=== PATIENT | female | born 1960 | race Caucasian/White ===

== ENCOUNTER → 2024-01-25 07:19 | Outpatient (REF) | payer OTHER, SELFPAY ==
[2024-01-25 08:53] LABS: % Basophils 0.7 % (0-2); % Eosinophils 3.2 % (0-6); % Immature Granulocytes 0.4 % (0-0.5); % Lymphocytes 34.2 % (20.5-51.1); % Monocytes 7.6 % (1.7-9.3); % Neutrophils 53.9 % (42.2-75.2); Absolute Eosinophils 0.2 10^3/uL (0-0.7); Absolute Lymphocytes 1.9 10^3/uL (1.2-3.4); Absolute Monocytes 0.4 10^3/uL (0.1-0.6); Absolute Neutrophils 3.1 10^3/uL (1.4-6.5); Hematocrit 41.8 % (37.0-47.0); Hemoglobin 14.3 g/dL (12.0-16.0); Mean Corp Hgb Conc. 34.2 g/dL (33.0-37.0); Mean Corpuscular Hgb 32.8 pg (27.0-31.0); Mean Corpuscular Volume 95.9 fL (81.0-99.0); Mean Platelet Volume 10.5 fL (7.4-10.4); Nucleated Red Blood Cells % 0 %; Platelet Count 226 10^3/uL (130-400); Red Blood Cell Count 4.36 10^6/uL (4.20-5.40); Red Cell Dist. Width 12.7 % (11.5-14.5); White Blood Cell Count 5.7 10^3/uL (4.8-10.8)
[2024-01-25 09:11] LABS: ALT (SGPT) 36 U/L (0-35); AST (SGOT) 31 U/L (14-36); Albumin 4.6 g/dl (3.5-5.0); Alkaline Phosphatase 109 U/L (38-126); Blood Urea Nitrogen 19 mg/dl (7-17); Calcium 9.7 mg/dl (8.4-10.2); Carbon Dioxide 19 mmol/L (22-30); Chloride 107 mmol/L (98-107); Glucose 88 mg/dl (70-99); HDL Cholesterol 50 mg/dl; LDL Cholesterol, Calculated 186 mg/dl; Potassium 4.3 mmol/L (3.5-5.1); Sodium 138 mmol/L (135-145); Total Bilirubin 0.9 mg/dl (0.2-1.3); Total Cholesterol 268 mg/dl (50-199); Total Protein 7.1 g/dl (6.3-8.2); Triglyceride 161 mg/dl (10-149); Very Low Density Lipoprotein 32 mg/dl (0-30); eGFR 42.01
[2024-01-25 09:36] LABS: D-Dimer 7.63 ug/mlFEU (0.00-0.50)
[2024-01-25 09:38] LABS: TSH 2.11 uIU/ml (0.47-4.68)
== END ==
LOC: REG 07:19
PROVIDERS: ATTENDING PHYSICIAN Internal Medicine Cardiovascular Disease
DX: R06.02 Shortness of breath (principal)
CPT/HCPCS: 36415; 80053; 80061; 84443; 85025; 85379

== ENCOUNTER → 2024-02-04 07:39 | Outpatient (REF) | payer OTHER, SELFPAY | LOC: RAD 07:39 | PROVIDERS: ATTENDING PHYSICIAN Internal Medicine Cardiovascular Disease | DX: R79.89 Other specified abnormal findings of blood chemistry (principal); R06.02 Shortness of breath | CPT/HCPCS: 71275; Q9967 ==

== ENCOUNTER 2024-02-04 12:50 | Inpatient (IN) | payer OTHER, SELFPAY ==
[2024-02-04] VITALS (15 sets, daily range): BP systolic 144–180; BP diastolic 88–124; BMI 29.2
--- NOTE | 2024-02-04 09:10 | EDRN ---
the pt was brought to ED Bed #3 from waiting room, Dr. Tiwari came immediately to the bedside, pt placed on monitor, pt has previously placed RAC #20 PIV that was placed in outpatient CT scan, labs drawn and sent, EKG being performed
--- NOTE | 2024-02-04 09:13 | ED.GENMED ---
History of Present Illness
<Karine Shepard MD, Resident - Last Filed: 02/04/24 15:54>
General
Chief Complaint: Breathing Problem
Source: patient
Time Seen by Provider: 02/04/24 08:53
History of Present Illness
History of Present Illness:
63, yo female, Ms. Paloma Hunter, with no significant past medical history presented to the ER after her outpatient chest CT showed pulmonary embolism. Patient reports having SOB and dry cough since December, was seen at urgent care, finished a course of
antibiotics, but her dyspnea has never resolved. So she consulted Dr. Santamaria, who ordered outpatient blood work, CT chest. Patient went for a 7-hour long car drive 6 days ago. Patient also reports few episodes of lightheadedness in the past
couple of weeks. She denies chest pain, palpitations, calf pain, recent surgeries, trauma, previous history of blood clots/clotting disorders.
Phy Exam
<Karine Shepard MD, Resident - Last Filed: 02/04/24 15:54>
Physical Exam
Physical Exam:
GEN: Patient appears anxious
Eyes: PERRLA, EOMs intact, no scleral icterus
HENT: NCAT, oral mucosa moist, no JVD, no cervical adenopathy.
Lungs: CTAB, no wheezes, rales, rhonchi, normal chest wall excursion
Cardiac: RRR, S1-S2+, no peripheral edema. Radial pulses 2+ bilat
Abdomen: S, NT, ND, NABS, no masses or hepatosplenomegaly
Neuro: AO x 3, no focal deficits to BUE/BLE, normal sensation throughout
Skin: No rashes, petechiae. Normal color, no pallor or jaundice.
Psych: Calm, cooperative, proper hygiene
Scores
<Karine Shepard MD, Resident - Last Filed: 02/04/24 15:54>
Heart Failure Risk
Heart Failure Risk Score: Not Applicable
Course
<Karine Shepard MD, Resident - Last Filed: 02/04/24 15:54>
Orders/Labs/Results
Orders:
Orders
02/04/24 09:09
Electrocardiogram (*1) Urgent
Reason for Study: Shortness of Breath
EKG- Treatment ONCE
02/04/24 09:11
Complete Blood Count/With Diff Urgent
Comprehensive Metabolic Panel Urgent
PT/INR [Prothrombin Time] Urgent
PTT Urgent
Troponin I Urgent
02/04/24 09:[address] Non Medication Order As Directed
Physician Order: PTT 6 hours after initial start of Heparin infusion
Above order entered?: Yes
02/04/24 09:27
Heparin 6,400 units IV PRN PRN
02/04/24 09:28
Heparin 3,200 units IV PRN PRN
02/04/24 09:29
Heparin 6,400 units IV NOW STA
Nursing to Place Non Medication Order As Directed
Physician Order: PTT 6 hours after initial start of Heparin infusion
Above order entered?: Yes
02/04/24 09:30
Heparin 56942 Units/250 ml 25,000 units in 250 ml IV PER PROTOCOL
Weight to be used for heparin protocol in kilograms (kg):: 79.6
Protocol:: DVT/PE
PTT Goal Range to be used:: PTT 73 to 111 seconds
Order type:: Initial
INITIAL Infusion Dose (UNITS/KG/hr) & then follow protocol:: 18 units/kg/hr
Infusion Dose in UNITS/hr & then follow protocol (UNITS/hr):: 1,400
INFUSION RATE in mL/hr & then follow protocol (mL/hr):: 14
For DVT/PE algorithm, re-bolus for low PTT?: Yes
PTT less than or equal to 64 seconds:: Re-bolus 80 units/kg (max 10,000units). Increase by 300 units/hr
(+ 3mL/hr)
PTT 64.1 to 72.9 seconds:: Re-bolus 40 units/kg (max 5,000 units). Increase by 200 units/hr
(+ 2mL/hr)
PTT 73 to 111 seconds:: Target Range. No change in rate.
PTT 111.1 to 130.9 seconds:: Decrease rate by 200 units/hr (- 2 mL/hr)
PTT 131 to 199.9 seconds:: HOLD for 1 hr. Then decrease by 200 units/hr (- 2mL/hr)
PTT greater than or equal to 200 seconds:: HOLD for 2 hrs & Notify Provider. Then decrease by 300 units/hr
(- 3mL/hr)
Lab follow-up:: Each change, PTT q6h until 2 consecutive are therapeutic. Then
PTT daily.
02/04/24 Lunch
Regular
At Your Request: Full Participation
Does patient need a safe tray?: No
Reason for opting out of Deployment Technician order writing: Provider Decision
02/04/24 12:19
Admit/Transfer Patient As Directed
Co-Sign Provider:
Level of Care: Inpatient admission
Assign to:: Telemetry
Physician / Group: Pranav
Diagnosis: Acute BL PE
Reason for Telemetry: Other
Other Reason for Telemetry: PE
Date to Stop Telemetry: 02/06/24
Time to Stop Telemetry: 11:00
Reason for Hospitalization: see progress note
Expected length of stay greater than two midnights?: Yes
ELOS- Estimated Length of Stay in days: 3
I certify the patient meets the requirements for IP care: Yes
PRN Pain Medication Management As Directed
May give lesser potent ordered pain med per pt: Yes
preference::
Protocol:: Medication orders for pain may be administered in a
manner that supports deferring to patient preference
when the pt is:
- Requesting an ordered lesser potent pain medication.
Least to most potent pain medications are defined
as: acetaminophen < NSAID < tramadol < opioids
(morphine, oxycodone, hydromorphone).
- Requesting a lesser dose of the same medication IF
ORDERED.
- Requesting a less intrusive route of administration
if both routes are prescribed by the provider (PO <
IV).
02/04/24 12:20
Code Status As Directed
Resuscitation Status: Full Code
02/04/24 12:57
Diphenhydramine [Benadryl] 25 mg PO DAILYPRN PRN
HydrALAZINE [Apresoline] 5 mg IV Q6HPRN PRN
02/04/24 12:57
Echo 2D MMode Color/Doppler Urgent
Reason for Study: PE with RH strain
CT Abd/pel Without Iv Or Oral Routine
Comment: hx of kidney stones
Reason For Exam: left atrophic kidney with calcyeal dilatation
Heparin Protocol- PTT Orders As Directed
PTT per Heparin protocol: -Obtain CBC and baseline PTT - if not already collected.
-Obtain PTT 6 hours from start of infusion. Then, every 6 hours until 2 consecutive
PTT's are therapeutic. Then, PTT Daily.
-With each rate change, obtain PTT every 6 hours until 2 consecutive PTT's are
therapeutic. Then, PTT Daily.
Activity As Directed
Activity Level: Bathroom Privileges
Hemetest Stools As Directed
I&O [Intake/ Output] As Directed
Frequency: q12h
Notify MD As Directed
Notify physician if: PTT is greater than or equal to 200.
US Periph Venous LOWER Ext Dax Routine
Comment:
Reason For Exam: Acute PE
02/04/24 15:35
PTT Urgent
02/05/24 06:00
EKG [Electrocardiogram (*1)] IN AM
Reason for Study: Abnormal EKG
BMP [Basic Metabolic Panel] IN AM
CBC/No Diff [Complete Blood Count/No Diff] IN AM
CMP [Comprehensive Metabolic Panel] IN AM
02/06/24 06:00
Complete Blood Count/No Diff Q2D
Comment: notify provider: Platelet count < 130,000 or decrease by 50% from baseline
02/06/24 11:00
DC Protocol for Telemetry ONCE
02/08/24 06:00
Complete Blood Count/No Diff Q2D
Comment: notify provider: Platelet count < 130,000 or decrease by 50% from baseline
02/10/24 06:00
Complete Blood Count/No Diff Q2D
Comment: notify provider: Platelet count < 130,000 or decrease by 50% from baseline
02/12/24 06:00
Complete Blood Count/No Diff Q2D
Comment: notify provider: Platelet count < 130,000 or decrease by 50% from baseline
02/14/24 06:00
Complete Blood Count/No Diff Q2D
Comment: notify provider: Platelet count < 130,000 or decrease by 50% from baseline
02/16/24 06:00
Complete Blood Count/No Diff Q2D
Comment: notify provider: Platelet count < 130,000 or decrease by 50% from baseline
02/18/24 06:00
Complete Blood Count/No Diff Q2D
Comment: notify provider: Platelet count < 130,000 or decrease by 50% from baseline
02/20/24 06:00
Complete Blood Count/No Diff Q2D
Comment: notify provider: Platelet count < 130,000 or decrease by 50% from baseline
Abnormal Lab Results
02/04/24
09:11
MCH 32.6 H pg
(27.0-31.0)
Absolute Neuts (auto) 7.0 H 10^3/uL
(1.4-6.5)
Absolute Lymphs (auto) 0.5 L 10^3/uL
(1.2-3.4)
Neutrophils % 91.8 H %
(42.2-75.2)
Lymphocytes % 6.8 L %
(20.5-51.1)
Monocytes % 1.0 L %
(1.7-9.3)
APTT 23.0 L Sec
(23.4-35.0)
Carbon Dioxide 18 L mmol/L
(22-30)
BUN 18 H mg/dl
(7-17)
Creatinine 1.2 H mg/dL
(0.6-1.0)
Glucose 153 H mg/dl
(70-99)
ALT 41 H U/L
(0-35)
02/04/24 09:11
02/04/24 09:11
Vital Signs
Initial and Last Documented VS:
Initial Vital Signs
Temp Pulse Resp BP Pulse Ox
97.9 F 84 20 180/124 94
02/04/24 08:46 02/04/24 08:46 02/04/24 08:46 02/04/24 08:46 02/04/24 08:46
Last Documented Vital Signs
Temp Pulse Resp BP Pulse Ox
97.9 F 81 18 152/94 96
02/04/24 08:46 02/04/24 15:00 02/04/24 15:00 02/04/24 15:00 02/04/24 14:54
<Abhinav Tiwari MD - Last Filed: 02/04/24 09:57>
Orders/Labs/Results
Orders:
Orders
02/04/24 09:09
Electrocardiogram (*1) Urgent
Reason for Study: Shortness of Breath
EKG- Treatment ONCE
02/04/24 09:11
Complete Blood Count/With Diff Urgent
Comprehensive Metabolic Panel Urgent
PT/INR [Prothrombin Time] Urgent
PTT Urgent
Troponin I Urgent
02/04/24 09:[address] Non Medication Order As Directed
Physician Order: PTT 6 hours after initial start of Heparin infusion
Above order entered?: Yes
02/04/24 09:27
Heparin 6,400 units IV PRN PRN
02/04/24 09:28
Heparin 3,200 units IV PRN PRN
02/04/24 09:29
Heparin 6,400 units IV NOW STA
Nursing to Place Non Medication Order As Directed
Physician Order: PTT 6 hours after initial start of Heparin infusion
Above order entered?: Yes
02/04/24 09:30
Heparin 50823 Units/250 ml 25,000 units in 250 ml IV PER PROTOCOL
Weight to be used for heparin protocol in kilograms (kg):: 79.6
Protocol:: DVT/PE
PTT Goal Range to be used:: PTT 73 to 111 seconds
Order type:: Initial
INITIAL Infusion Dose (UNITS/KG/hr) & then follow protocol:: 18 units/kg/hr
Infusion Dose in UNITS/hr & then follow protocol (UNITS/hr):: 1,400
INFUSION RATE in mL/hr & then follow protocol (mL/hr):: 14
For DVT/PE algorithm, re-bolus for low PTT?: Yes
PTT less than or equal to 64 seconds:: Re-bolus 80 units/kg (max 10,000units). Increase by 300 units/hr
(+ 3mL/hr)
PTT 64.1 to 72.9 seconds:: Re-bolus 40 units/kg (max 5,000 units). Increase by 200 units/hr
(+ 2mL/hr)
PTT 73 to 111 seconds:: Target Range. No change in rate.
PTT 111.1 to 130.9 seconds:: Decrease rate by 200 units/hr (- 2 mL/hr)
PTT 131 to 199.9 seconds:: HOLD for 1 hr. Then decrease by 200 units/hr (- 2mL/hr)
PTT greater than or equal to 200 seconds:: HOLD for 2 hrs & Notify Provider. Then decrease by 300 units/hr
(- 3mL/hr)
Lab follow-up:: Each change, PTT q6h until 2 consecutive are therapeutic. Then
PTT daily.
02/04/24 Lunch
Regular
At Your Request: Full Participation
Does patient need a safe tray?: No
Reason for opting out of Deployment Technician order writing: Provider Decision
02/04/24 12:19
Admit/Transfer Patient As Directed
Co-Sign Provider:
Level of Care: Inpatient admission
Assign to:: Telemetry
Physician / Group: Pranav
Diagnosis: Acute BL PE
Reason for Telemetry: Other
Other Reason for Telemetry: PE
Date to Stop Telemetry: 02/06/24
Time to Stop Telemetry: 11:00
Reason for Hospitalization: see progress note
Expected length of stay greater than two midnights?: Yes
ELOS- Estimated Length of Stay in days: 3
I certify the patient meets the requirements for IP care: Yes
PRN Pain Medication Management As Directed
May give lesser potent ordered pain med per pt: Yes
preference::
Protocol:: Medication orders for pain may be administered in a
manner that supports deferring to patient preference
when the pt is:
- Requesting an ordered lesser potent pain medication.
Least to most potent pain medications are defined
as: acetaminophen < NSAID < tramadol < opioids
(morphine, oxycodone, hydromorphone).
- Requesting a lesser dose of the same medication IF
ORDERED.
- Requesting a less intrusive route of administration
if both routes are prescribed by the provider (PO <
IV).
02/04/24 12:20
Code Status As Directed
Resuscitation Status: Full Code
02/04/24 12:57
Diphenhydramine [Benadryl] 25 mg PO DAILYPRN PRN
HydrALAZINE [Apresoline] 5 mg IV Q6HPRN PRN
02/04/24 12:57
Echo 2D MMode Color/Doppler Urgent
Reason for Study: PE with RH strain
CT Abd/pel Without Iv Or Oral Routine
Comment: hx of kidney stones
Reason For Exam: left atrophic kidney with calcyeal dilatation
Heparin Protocol- PTT Orders As Directed
PTT per Heparin protocol: -Obtain CBC and baseline PTT - if not already collected.
-Obtain PTT 6 hours from start of infusion. Then, every 6 hours until 2 consecutive
PTT's are therapeutic. Then, PTT Daily.
-With each rate change, obtain PTT every 6 hours until 2 consecutive PTT's are
therapeutic. Then, PTT Daily.
Activity As Directed
Activity Level: Bathroom Privileges
Hemetest Stools As Directed
I&O [Intake/ Output] As Directed
Frequency: q12h
Notify MD As Directed
Notify physician if: PTT is greater than or equal to 200.
US Periph Venous LOWER Ext Dax Routine
Comment:
Reason For Exam: Acute PE
02/04/24 15:35
PTT Urgent
02/05/24 06:00
EKG [Electrocardiogram (*1)] IN AM
Reason for Study: Abnormal EKG
BMP [Basic Metabolic Panel] IN AM
CBC/No Diff [Complete Blood Count/No Diff] IN AM
CMP [Comprehensive Metabolic Panel] IN AM
02/06/24 06:00
Complete Blood Count/No Diff Q2D
Comment: notify provider: Platelet count < 130,000 or decrease by 50% from baseline
02/06/24 11:00
DC Protocol for Telemetry ONCE
02/08/24 06:00
Complete Blood Count/No Diff Q2D
Comment: notify provider: Platelet count < 130,000 or decrease by 50% from baseline
02/10/24 06:00
Complete Blood Count/No Diff Q2D
Comment: notify provider: Platelet count < 130,000 or decrease by 50% from baseline
02/12/24 06:00
Complete Blood Count/No Diff Q2D
Comment: notify provider: Platelet count < 130,000 or decrease by 50% from baseline
02/14/24 06:00
Complete Blood Count/No Diff Q2D
Comment: notify provider: Platelet count < 130,000 or decrease by 50% from baseline
02/16/24 06:00
Complete Blood Count/No Diff Q2D
Comment: notify provider: Platelet count < 130,000 or decrease by 50% from baseline
02/18/24 06:00
Complete Blood Count/No Diff Q2D
Comment: notify provider: Platelet count < 130,000 or decrease by 50% from baseline
02/20/24 06:00
Complete Blood Count/No Diff Q2D
Comment: notify provider: Platelet count < 130,000 or decrease by 50% from baseline
Abnormal Lab Results
02/04/24
09:11
MCH 32.6 H pg
(27.0-31.0)
Absolute Neuts (auto) 7.0 H 10^3/uL
(1.4-6.5)
Absolute Lymphs (auto) 0.5 L 10^3/uL
(1.2-3.4)
Neutrophils % 91.8 H %
(42.2-75.2)
Lymphocytes % 6.8 L %
(20.5-51.1)
Monocytes % 1.0 L %
(1.7-9.3)
APTT 23.0 L Sec
(23.4-35.0)
Carbon Dioxide 18 L mmol/L
(22-30)
BUN 18 H mg/dl
(7-17)
Creatinine 1.2 H mg/dL
(0.6-1.0)
Glucose 153 H mg/dl
(70-99)
ALT 41 H U/L
(0-35)
02/04/24 09:11
02/04/24 09:11
Vital Signs
Initial and Last Documented VS:
Initial Vital Signs
Temp Pulse Resp BP Pulse Ox
97.9 F 84 20 180/124 94
02/04/24 08:46 02/04/24 08:46 02/04/24 08:46 02/04/24 08:46 02/04/24 08:46
Last Documented Vital Signs
Temp Pulse Resp BP Pulse Ox
97.9 F 81 18 152/94 96
02/04/24 08:46 02/04/24 15:00 02/04/24 15:00 02/04/24 15:00 02/04/24 14:54
<Karine Shepard MD, Resident - Last Filed: 02/04/24 15:54>
MDM/Problems Addressed
Differential Diagnosis Includes:
Pulmonary embolism
MDM/Problems Addressed:
At presentation, BP�180/124
She required 2 L supplemental oxygen.
Outpatient CT showed�pulmonary embolism with moderate to large clot burden, right heart strain.
Discussed with Dr. Ewing, no indication for thrombolytics. PERT alert not activated.
Patient started on heparin protocol.
Patient is admitted to telemetry.
<Karine Shepard MD, Resident - Last Filed: 02/04/24 15:54>
*Critical Care Note
Total Time (30-74mins, 75-104mins- exclusive of procedures): Not Applicable
ED Attending Note
<Karine Shepard MD, Resident - Last Filed: 02/04/24 15:54>
-
Portions of this chart may have been created with voice recognition software.� Occasional wrong word or��sound alike� substitutions may have occurred due to the inherent limitations of voice recognition software.
<Abhinav Tiwari MD - Last Filed: 02/04/24 09:57>
ED Attending Note
Patient seen and examined by attending physician: Yes
ED Attending Note:
Patient presents to ED for evaluation after outpatient CT chest at this morning showed pulmonary embolism. Patient has had exertional shortness of breath over the past 6 weeks. Patient was evaluated by automobile brakes bonder as an outpatient who ordered CT
chest. Patient denies chest pain. Denies leg pain or swelling. Denies back pain. Denies fever or chills. Patient states that her symptoms started with a scratchy throat and shortness of breath, 2 days after returning from plane ride from
[place] in November. Subsequently, patient was evaluated in urgent care center on multiple occasions, and has taken antibiotics for potential bronchitis, without improvement in symptoms. Denies previous history of blood clots. Denies smoking.
Denies trauma. Denies family history of blood clots.
Physical Exam
General: mild distress, not acutely ill. afebrile.
Head: nc/at. eomi
Neck: supple. no meningeal signs.
Heart: s1/s2 regular rate and rhythm, no murmur. equal radial pulses.
Lungs: no acute respiratory distress. clear bilaterally
Abdomen: normal bowel sounds. not tender.
Neuro: alert and oriented. no focal neurological deficits
Skin: no rash
Psychiatric: well kept. interactive and cooperative
Extremities: no edema. no calf tenderness.
CTA chest reviewed -moderate clot burden with right heart strain. Fortunately, patient remains hemodynamically stable. Resting pulse ox between 90% and 95% on room air. Patient placed on 2 L of supplemental oxygen via nasal cannula. Discussed
with on-call fresh food manager, Dr. Szekely, who does not feel that PERT alert is indicated at this time. Recommends admitting patient on heparin protocol.
Discharge Plan
Departure
Patient Disposition: Admit
Date of Disposition: 02/04/24
Time of Disposition: 09:46
Admit to: Telemetry
Presentation/result/management discussed w/ accepting MD/DO: Hospitalist
Patient with high blood pressure during this ER visit?: Yes
Condition: Fair
Discharge Problem:
Pulmonary embolism
Interventions
Interventions:
*Risk Screen - Suicide Last Done: 02/04/24 13:05
*General Assessment Last Done: 02/04/24 09:11
*Neglect/Abuse Screening Last Done: 02/04/24 09:11
ED- Fall Risk Assessment Last Done: 02/04/24 09:11
*ED COVID-19 Vaccine History Last Done: 02/04/24 09:11
*Nursing Disposition Last Done: 02/04/24 14:27
ED- Cardiac Assessment Last Done: 02/04/24 09:11
ED- Pulmonary Assessment Last Done: 02/04/24 09:11
Discharge Date and Time
Discharge Date/Time: 02/04/24 15:13
--- NOTE | 2024-02-04 09:24 | EDRN ---
pharmacy called by this RN to review Heparin orders
[2024-02-04 09:28] LABS: % Basophils 0.1 % (0-2); % Immature Granulocytes 0.3 % (0-0.5); % Lymphocytes 6.8 % (20.5-51.1); % Neutrophils 91.8 % (42.2-75.2); Absolute Lymphocytes 0.5 10^3/uL (1.2-3.4); Absolute Monocytes 0.1 10^3/uL (0.1-0.6); Hematocrit 40.5 % (37.0-47.0); Mean Corp Hgb Conc. 34.6 g/dL (33.0-37.0); Mean Corpuscular Hgb 32.6 pg (27.0-31.0); Mean Corpuscular Volume 94.4 fL (81.0-99.0); Mean Platelet Volume 9.9 fL (7.4-10.4); Nucleated Red Blood Cells % 0 %; Platelet Count 303 10^3/uL (130-400); Red Blood Cell Count 4.29 10^6/uL (4.20-5.40); Red Cell Dist. Width 12.3 % (11.5-14.5); White Blood Cell Count 7.7 10^3/uL (4.8-10.8)
[2024-02-04] MEDS: HEPARIN 25000 UNITS/250 ML IV (09:31)
[2024-02-04] MEDS: HEPARIN 6400 UNITS IV (09:32)
[2024-02-04 09:35] LABS: INR 1.11; PT 14.1 Sec (11.4-14.6)
[2024-02-04 09:37] LABS: AST (SGOT) 33 U/L (14-36); Albumin 4.6 g/dl (3.5-5.0); Alkaline Phosphatase 113 U/L (38-126); Blood Urea Nitrogen 18 mg/dl (7-17); Calcium 10.2 mg/dl (8.4-10.2); Carbon Dioxide 18 mmol/L (22-30); Chloride 106 mmol/L (98-107); Estimated Creatinine Clearance 49 ml/min; Glucose 153 mg/dl (70-99); Potassium 4.1 mmol/L (3.5-5.1); Sodium 137 mmol/L (135-145); Total Bilirubin 0.6 mg/dl (0.2-1.3); Total Protein 7.3 g/dl (6.3-8.2); eGFR 50.55
[2024-02-04 09:47] LABS: Troponin I < 0.012 ng/ml
[2024-02-04 10:24] LABS: ALT (SGPT) 41 U/L (0-35)
--- NOTE | 2024-02-04 10:51 | EDRN ---
the pt is resting in stretcher in the lowest position, side rails up x2, call nieto within reach, HOB elevated, no s/s of distress, the pt denies chest pain, the pt denies SOB currently, the pt is currently in NSR in the 70's, last BP 150/104 (118),
the pt is currently still on 3L NC sp02 97%, awaiting for hospitalist to come to the pts bedside and admit the pt, the pt denies needing anything at this time, will continue to monitor the pt closely
--- NOTE | 2024-02-04 10:58 | CON.PUL ---
Consultation
Consultation Request
Date/Time Consultation Requested: 02/04/2024-11 AM
Date/Time Consultation Performed: 02/04/2024- AM
Requesting Provider: Hospitalist
Performing Provider: Dr. Ewing
Reason for Consultation: Pulm embolism
Medical History
-
Chief Complaint: Shortness of breath
History of Present Illness:
63-year-old female presented with exertional shortness of breath over the last 6 weeks and noted to have significant bilateral pulmonary emboli-pulmonary consulted for pulmonary embolism and shortness of breath 02/04/2024. She reports going to
[place] about 6 weeks ago. She was very active. She was hiking up to 8 miles a day. She came back and had upper respiratory tract infection. She never checked for any viruses. She had a nagging cough.. She went to urgent care on 2
occasions. Chest x-ray was reportedly clear. She received azithromycin on 1 occasion. The second visit because of persistent shortness of breath mid December when she went to the beach she had a chest x-ray which was also clear but again an EKG that
was reportedly normal but was sent to cardiology. Cardiology saw the patient and a D-dimer was obtained 2 weeks ago. The D-dimer came back positive and yesterday cardiology notified the patient that a CT of the chest is needed. CT of the chest
was markedly positive. She denies any chest pain, chest congestion, pleurisy, hemoptysis, abdominal pain, nausea, vomiting, diarrhea, or increased leg swelling or focal weakness. She has not had a mammogram in over 10 years. She does not get
routine screening or colonoscopies because she is felt like she is healthy. She had significant kidney abnormalities as well.
Past Medical History
Past Medical History: None (Denies any hypertension, hyperlipidemia, CAD, pulmonary, renal, gastrointestinal or neurologic disease)
Social History
Tobacco: Non-smoker (Minimal smoking in college)
Alcohol: None
Personal:
Living: With Family
Occupational Exposures: No known asbestos exposure
Environmental Exposures: No known tuberculosis exposure
Family History
Family History: Other ( specifically no family history of clotting mother had a stroke)
Allergies / Home Medications
Allergies
Allergy/AdvReac Type Severity Reaction Status Date / Time
iodine Allergy Mild Shortness Verified 02/04/24 09:15
of Breath
shellfish derived Allergy Mild Shortness Verified 02/04/24 09:15
of Breath
Home Medications
�Medication �Instructions �Recorded �Confirmed �Last Taken �Type
diphenhydramine HCl 25 mg capsule 25 mg PO DAILYPRN PRN ALLERGIC 02/04/24 02/04/24 02/04/24 History
(Benadryl) REACTION
Review of Systems
-
Unable to Obtain full review of systems at this time due to: Other (Per HPI)
Vitals / Labs / Diagnostic Testing
Vital Signs
Temp Pulse Resp BP Pulse Ox
97.9 F 79 16 150/104 95
02/04/24 08:46 02/04/24 10:45 02/04/24 10:45 02/04/24 10:00 02/04/24 09:11
Lab Data
02/04/24 09:11
02/04/24 09:11
Laboratory Results
02/04/24
09:11
PT 14.1
INR 1.11
APTT 23.0 L
Diagnostic Testing:
Physical Exam
-
Exam:
Well-nourished and well-developed in no apparent distress
HEENT-atraumatic, normocephalic
Neck-supple, no JVD, no bruit
Heart-regular rate and rhythm-no murmurs, rubs or gallops, no increased P2 or RV heave
Chest-clear to auscultation, no wheezes, crackles
Back-no tenderness
Abdomen-soft, nontender, nondistended, no hepatosplenomegaly
Extremities-no cyanosis, clubbing, trace lower extremity edema
Integument-intact, no rashes, lesions or ecchymosis
Neurology-alert and oriented, nonfocal motor and sensory exam
Assessment
-
63-year-old female presented with exertional shortness of breath over the last 6 weeks and noted to have significant bilateral pulmonary emboli-pulmonary consulted for pulmonary embolism and shortness of breath 02/04/2024.
Bilateral pulmonary emboli with RV strain-suspect subacute and unprovoked-outside chance long plane flight 6 weeks ago with possible covid infection caused hypercoagulability and provoked status
PESI-64-low risk
D-dimer elevation 01/25/2024
Renal insufficiency with markedly abnormal appearing kidney on CT chest
Hyperglycemia
Conditions present prior to admission:
None-specifically no hypertension, hyperlipidemia, CAD, pulmonary, renal, gastrointestinal disease
Plan
Patient will be admitted to telemetry for close observation
Supplemental oxygen as needed
Aspiration precautions
Incentive spirometry
CT chest personally reviewed-see below
Check echocardiogram
Check lower extremity ultrasound
Recommend hypercoagulable workup with unprovoked clot
Full PESI and sPESI summarized above
Heparin drip or Lovenox 1 mg/kg every 12 hours
Benefits and risks of thrombolytics therapy were reviewed with patient
Patient has no tachycardia and no hypotension-currently risks of aggressive thrombolytic therapy outweigh [id number] notified of options, reasons for conservative standard of care therapy and is in agreement
Bedrest �24 hours
Cardiology saw the patient as an outpatient-consider consultation
Trend troponin
Check echocardiogram
Nephroliths and atrophic kidney noted on CT incidentally
Consider dedicated imaging and nephrology/urology evaluation
DVT prophylaxis-on full anticoagulation
Early nutrition
Early mobilization
Reviewed with at the bedside, emergency room physician, and Dr. Rock
Outpatient pulmonary follow-up
Outpatient appropriate malignancy screening including colonoscopy and prostate exam
Diagnostic data:
CT chest 02/04/2024-moderate to large clot burden pulmonary emboli with evidence for right ventricular strain, focal area of pulmonary infarction superior segment right lower lobe, right-sided nephroliths are identified with left kidney appearing to
be moderate to severely atrophic and new finding from 2005 with dilation of visualized calyces within the upper pole of the left kidney
EKG 02/04/2024-sinus rhythm, left atrial enlargement, inferior Q waves, poor R wave progression anteriorly and T wave abnormalities consider anterolateral ischemia
Data Reviewed
-
EKG: Report reviewed by me
Radiology: Image personally visualized and interpreted and Report reviewed by me
CT Scan: Image personally visualized and interpreted and Report reviewed by me
Medical Tests (Nuc Med, Echo etc): Report reviewed by me
Labs: Labs reviewed by me
Old Records: Reviewed
Total Time Spent with Patient (in minutes): 55
--- NOTE | 2024-02-04 11:37 | EDRN ---
still awaiting for provider to come to the pts bedside and see the pt
--- NOTE | 2024-02-04 11:56 | EDRN ---
provider at the pts bedside speaking with the pt
--- NOTE | 2024-02-04 12:26 | HPS.HSE ---
Family Physician
-
Family Physician: * NONE
Chief Complaint
-
Shortness of breath
History of Present Illness
Patient is a 63-year-old female with no prior given diagnosis but also has not seen any primary doctor for routine preventative care presents with shortness of breath.
In mid November she went to [place] for 8 to 9 days to visit family. She was very functional and she talks about doing trekking and long walks there without any difficulty. A day or 2 after coming back from [place] she was not feeling well ,she
had sore throat and could not speak, her voice changed .she had low-grade fever. She is self treated for possible laryngitis. She had a cough then which is still lingering a bit. Otherwise most of her laryngitis symptoms resolved.
In mid December she [place] [facility] [place] the first day she went there when she was walking up the stairs she suddenly felt very short of breath and could not function. She tried to do 2-3 blocks of walking and she has to stop because of shortness of
breath.
She returned back home and then went to see urgent care center was treated with possible bronchitis with antibiotics. She did not get any better with the shortness of breath so she went back to see the urgent care center again and they saw an
abnormal EKG and referred to telegraph service clerk.
Photographic Specialist looks like did the blood test and the D-dimer was elevated so requested a chest CT which was done today showed bilateral PE with large clot burden so referred to the hospital.
Denies any history of leg swelling.
She is not up-to-date with her cancer screening. Last mammogram was 10 years ago. Never had a colonoscopy. Non-smoker. No family history of cancers or blood clots.
No wt loss. Denies feeling any lumps or bumps
Medical History
Past Medical History
Past Medical History: Reports Other (Nephrolithiasis)
Past Surgical History: Reports None
Social History
Tobacco: Non-smoker
Alcohol: Occasional
Drug: None
Personal:
Living: With Family
Family History
Family History: CAD (Mother)
Allergies / Home Medications
Allergies reflects when Allergies were last updated in [employer].
Home Medications with original date entered in [employer]
Allergy/Medication List:
Allergies
Allergy/AdvReac Type Severity Reaction Status Date / Time
iodine Allergy Mild Shortness Verified 02/04/24 09:15
of Breath
shellfish derived Allergy Mild Shortness Verified 02/04/24 09:15
of Breath
Home Medications
diphenhydramine HCl 25 mg capsule (Benadryl) 25 mg PO DAILYPRN PRN ALLERGIC REACTION 02/04/24
Review of Systems
-
A 12 point ROS was completed and negative except as noted: Yes
Physical Exam
Vital Signs
Vital Signs
Temp Pulse Resp BP Pulse Ox
97.9 F 76 20 169/112 98
02/04/24 08:46 02/04/24 12:22 02/04/24 12:22 02/04/24 12:22 02/04/24 12:22
Physical Exam
General: No Apparent Distress
HEENT: Moist mucous membranes
Respiratory: Clear and Non Labored Respirations; No Accessory Resp Muscle Use
Cardiac: S1/S2, Regular Rhythm and Tachycardia
GI: Soft, Non Tender, Non Distended, Normal Bowel Sounds and No Hepatosplenomegaly
Musculoskeletal: No Edema
Neuro: AO x 3 and Nonfocal/grossly intact
Psych: Calm
Laboratory Results
-
02/04/24 09:11
02/04/24 09:11
Laboratory Results
PT 14.1 Sec (11.4-14.6) 02/04/24 09:11
INR 1.11 02/04/24 09:11
APTT 23.0 Sec (23.4-35.0) L 02/04/24 09:11
Total Bilirubin 0.6 mg/dl (0.2-1.3) 02/04/24 09:11
AST 33 U/L (14-36) 02/04/24 09:11
ALT 41 U/L (0-35) H 02/04/24 09:11
Alkaline Phosphatase 113 U/L (38-126) 02/04/24 09:11
Troponin I < 0.012 ng/ml 02/04/24 09:11
Data Reviewed
-
CT Scan: Report Reviewed by me (CT Chest report done as OP today)
Medical Tests (Nuc Med, Echo, EKG etc): Image Personally Visualized and interpreted (EKG)
Lab Data: Labs Reviewed by me
Impression/Plan
-
Acute bilateral PE with large clot burden and evidence of right heart strain on CT chest-patient hemodynamically stable. Requiring 2 to 3 L of oxygen. There is also concern about pulmonary infarct but patient without any chest pain. Unclear
etiology.
Admit to telemetry
Obtain ultrasound of bilateral lower extremities
Start on IV heparin
Obtain ECHO urgently
Pulmonary consulted
Would need regular cancer screening and thrombophilia screen once acute issues are settled.
Abnormal EKG-T wave inversion in inferior and anterior leads noted. She is without any cardiac risk factors. Non-smoker. Admitting troponins are negative. Was seen by cardiology 10 days ago. Will try to obtain old EKG. If no changes would
advise her to go back to follow with cardiology as an outpatient. Also will see echo and see the need of cardiology referral inpatient.
Abnormal creatinine-suspect chronic kidney disease. Patient says she was told in urgent care center her creatinine was slightly abnormal. CT of the chest today picks up atrophic left kidney and there is also calyceal dilatation especially of the
upper pole of the left kidney. History of nephrolithiasis will obtain a CT of the abdomen pelvis to rule out any obstructing stones. Follow-up creatinine since she received contrast. Will make a referral to nephrology depending on initial testing.
Elevated blood pressure-patient denies any history of hypertension-continue to follow closely.
Full code
--- NOTE | 2024-02-04 12:28 | EDRN ---
admission orders were placed for the pt, the pt is resting in stretcher in the lowest position, side rails up x2, call nieto within reach, HOB elevated, no s/s of distress, VS WNL, the pt is currently still on 3L NC Sp02 98%, the pt currently still
has Heparin gtt running at 1400units/hour, the pt denies chest pain, denies SOB, the pt denies needing anything at this time, will continue to monitor the pt closely
--- NOTE | 2024-02-04 12:57 | EDRN ---
admission orders processed and pharmacy notified
--- NOTE | 2024-02-04 13:42 | EDRN ---
admission assessment performed and admission documentation performed as well
--- NOTE | 2024-02-04 15:36 | EDRN ---
PTT drawn and sent
[2024-02-04 16:29] LABS: APTT > 200 Sec (23.4-35.0)
[2024-02-04] MEDS: APRESOLINE 5 MG IV (20:18)
[2024-02-04] MEDS: TYLENOL 650 MG PO (20:50)
--- NOTE | 2024-02-05 02:54 | PTCARENOTE ---
Addendum entered by Huong Crews RN 02/05/24 03:04:
PTT:65.2 not 65.3
Original Note:
Patient`s 0100 PTT resulted during down time. PTT was 65.3. Heparin drip increased to 1300 units/hour and bolus given. Protocol followed. Nurse Gasper Michael co-signed. See downtime documentation.
[2024-02-05 02:58] VITALS: BP 136/95
[2024-02-05 02:58] LABS: APTT 65.2 Sec (23.4-35.0)
--- NOTE | 2024-02-05 03:14 | DOWNTIME ---
There was a [employer] Client Tracer Clerk Downtime on 02/05/2024 from 0100 to 02/05/2024 at 0252. Downtime documentation of patient's care, including medication administrations, has been reconciled in the electronic record per guidelines. Refer to the
patient's paper chart under the miscellaneous tab to see printed paper medication records and downtime forms.
[2024-02-05] MEDS: HEPARIN 25000 UNITS/250 ML IV (07:12)
[2024-02-05 07:30] VITALS: BP 146/90
--- NOTE | 2024-02-05 08:59 | W.PN.PUL.V3 ---
Today's Communication / Plan
-
Heparin drip for an additional 24 hours
Convert to oral anticoagulant possibly tomorrow
CT abdomen pelvis noted
Urologic evaluation
Outpatient pulmonary follow-up
Assessment
-
63-year-old female presented with exertional shortness of breath over the last 6 weeks and noted to have significant bilateral pulmonary emboli-pulmonary consulted for pulmonary embolism and shortness of breath 02/04/2024.
Bilateral pulmonary emboli with RV strain-suspect subacute and unprovoked-outside chance long plane flight 6 weeks ago with possible covid infection caused hypercoagulability and provoked status
PESI-64-low risk
D-dimer elevation 01/25/2024
Renal insufficiency with markedly abnormal appearing kidney on CT chest
Hyperglycemia
Conditions present prior to admission:
None-specifically no hypertension, hyperlipidemia, CAD, pulmonary, renal, gastrointestinal disease
Plan
Patient will be admitted to telemetry for close observation
Supplemental oxygen as needed
Aspiration precautions
Incentive spirometry
CT chest personally reviewed-see below
Echocardiogram 02/04/2024-EF 65-70%, enlarged right ventricle, severe elevation PA systolic 73 with enlarged right ventricular size and reduced right ventricular systolic function
Lower extremity ultrasound 02/04/2024-incomplete occlusion deep venous thrombosis in the right popliteal vein
Recommend hypercoagulable workup with unprovoked clot
Full PESI and sPESI summarized above
Heparin drip for an additional 24 hours
Convert to oral anticoagulant-3 to 6 months
Benefits and risks of thrombolytics therapy were reviewed with patient
Patient has no tachycardia and no hypotension-currently risks of aggressive thrombolytic therapy outweigh [id number] notified of options, reasons for conservative standard of care therapy and is in agreement
Bedrest �24 hours
Cardiology saw the patient as an outpatient-consider consultation
Nephroliths and atrophic kidney noted on CT incidentally
CT abdomen and pelvis 02/05/2020 4-2 adjacent obstructing calculi proximal left ureter just below the ureterovesical junction associated with severe left hydronephrosis, severe left sided renal cortical atrophy which may be on the basis of
longstanding left-sided ureteral obstruction, several nonobstructing right sided renal calculi
Urology evaluation pending
Monitor renal function
DVT prophylaxis-on full anticoagulation
Early nutrition
Early mobilization
Outpatient pulmonary [id number] need eventual PFTs, eventual repeat lower extremity ultrasound, CT chest, and echocardiogram in addition to hypercoagulable workup
Outpatient appropriate malignancy screening including colonoscopy and mammogram which she has not had in over 10 years
Diagnostic data:
CT chest 02/04/2024-moderate to large clot burden pulmonary emboli with evidence for right ventricular strain, focal area of pulmonary infarction superior segment right lower lobe, right-sided nephroliths are identified with left kidney appearing to
be moderate to severely atrophic and new finding from 2005 with dilation of visualized calyces within the upper pole of the left kidney
EKG 02/04/2024-sinus rhythm, left atrial enlargement, inferior Q waves, poor R wave progression anteriorly and T wave abnormalities consider anterolateral ischemia
Subjective Data
-
Date of Service:
Date of Service: February 05, 2024
Chief Complaint: Pulmonary Follow Up and Dyspnea Follow Up
Subjective:
No complaints of shortness of breath at rest, chest pain, pleurisy, abdominal pain
Review of Systems
General: Other (Per HPI)
Objective Data
Data Reviewed
Vital Signs / I&O:
Vital Signs
Temp Pulse Resp BP Pulse Ox
98.3 F 76 16 146/90 98
02/05/24 07:30 02/05/24 07:30 02/05/24 07:30 02/05/24 07:30 02/05/24 07:30
SaO2: 98
Nasal Cannula flow liters per minute: 3
Physical Exam
General: Respiratory Distress (n) and Comfortable
HEENT: Normocephalic, Anicteric and Moist Mucous Membranes
Cardiovascular: Regular Rhythm, Peripheral Edema (Trace) and Other (No increased P2 or RV heave)
Respiratory: Wheeze (n), Crackles (n), Rhonchi, Non-Labored Respirations, Accessory Resp Muscle Use (n) and Stridor (n)
GI: Soft, Non Distended and Non Tender
Neurology: Awake, Alert and No Motor Deficits
Skin: Warm, Good Color, Cyanosis (n), Jaundice (n) and Rash (n)
Labs/Micro/Reports
Laboratory Results
02/04/24 02/04/24 02/05/24
09:11 15:35 01:09
PT 14.1
INR 1.11
APTT 23.0 L > 200 H* 65.2 H
[2024-02-05 09:45] LABS: Hematocrit 37.6 % (37.0-47.0); Hemoglobin 13.1 g/dL (12.0-16.0); Mean Corp Hgb Conc. 34.8 g/dL (33.0-37.0); Mean Corpuscular Hgb 32.6 pg (27.0-31.0); Mean Corpuscular Volume 93.5 fL (81.0-99.0); Platelet Count 297 10^3/uL (130-400); Red Blood Cell Count 4.02 10^6/uL (4.20-5.40); White Blood Cell Count 13.4 10^3/uL (4.8-10.8)
[2024-02-05 09:52] LABS: APTT 135.5 Sec (23.4-35.0)
[2024-02-05 10:18] LABS: ALT (SGPT) 28 U/L (0-35); AST (SGOT) 27 U/L (14-36); Albumin 4.2 g/dl (3.5-5.0); Alkaline Phosphatase 112 U/L (38-126); Blood Urea Nitrogen 19 mg/dl (7-17); Calcium 9.8 mg/dl (8.4-10.2); Carbon Dioxide 20 mmol/L (22-30); Chloride 110 mmol/L (98-107); Estimated Creatinine Clearance 49 ml/min; Glucose 88 mg/dl (70-99); Potassium 3.8 mmol/L (3.5-5.1); Sodium 139 mmol/L (135-145); Total Bilirubin 0.7 mg/dl (0.2-1.3); Total Protein 6.8 g/dl (6.3-8.2); eGFR 50.55
--- NOTE | 2024-02-05 11:13 | W.PN.HOSP.TC ---
Today's Communication/Plan
-
Continue with IV heparin.
Obtain a UA with culture and start on ceftriaxone.
Consult urology.
Assessment / Plan
Assessment / Plan
Acute bilateral PE with large clot burden and evidence of right heart strain on CT chest-patient hemodynamically stable. There is also concern about pulmonary infarct but patient without any chest pain. Urgent echo shows right ventricular strain
with elevated pulmonary arterial systolic pressure.
Suspect secondary to DVT-ultrasound of the leg shows nonocclusive right leg DVT. She had a flight journey in mid November to [place].
Remains hemodynamically stable.
Off of oxygen.
Asymptomatic without chest pain or shortness of breath.
Continue with IV heparin for another 24 hours and if remains stable consider to switch to oral anticoagulation.
Pulmonary following-need outpatient follow-up with them with regards to her right-sided pressures. Also a hematology eval after finishing treatments for thrombophilia workup.
I suspect this may be a provoked event with a DVT after long journey in the flight.
Abnormal EKG-T wave inversion in inferior and anterior leads noted. She is without any cardiac risk factors. Non-smoker. Admitting troponins are negative. ECHO with RV strain and suspect EKG changes may be related to it. Repeat EKG and follow
with AC treatments. Consider cards eval if persistent changes in EKG.
Abnormal creatinine-suspect chronic kidney disease 3. Patient says she was told in urgent care center her creatinine was slightly abnormal. CT of the chest today picks up atrophic left kidney and there is also calyceal dilatation especially of the
upper pole of the left kidney. History of nephrolithiasis so CT of the abdomen pelvis was obtained -see below. Follow-up creatinine since she received contrast- Cr remains stable at 1.2
Left ureterovesical obstructing stone with calyceal dilatation and as well as atrophic kidney-consult urology for assessment. I doubt she would be a candidate for general anesthesia and cystoscopy and stent placement and might need to consider
percutaneous nephrostomy if urinary diversion is recommended.
Check UA with cx and start on abx pending cx data ;leukocytosis noted.
Elevated blood pressure-patient denies any history of hypertension-continue to follow closely.
Full code
Discussed with pulmonary and urology.
Total time spent on today's encounter was 52 minutes which included time spent in counseling the patient/family regarding diagnosis and treatment plan as listed above, goals of care, and symptom management. Case was discussed with nursing staff,
specialists, and care coordinators/case management. All labs and imaging personally reviewed by me. Remainder the time spent in detailed review of previous records, lab data, imaging, and other medical provider documentation.
Anticipated Discharge: > 48 hours
Subjective/Interval History
-
Date of Service: February 05, 2024
Patient today without chest pain, shortness of breath or palpitations.
No lightheadedness.
Denies any abdominal pain or flank pain. Denying any dysuria, frequency of urine.
Patient has history of recurrent nephrolithiasis dating back 15 years. She always was able to pass her stones and never needed surgical intervention. Last time she think she was symptomatic was a year ago where she passed a large stone. Since
then denies any recurrent symptoms of kidney stone-usually she gets a pressure in her pelvis or abdomen or a pressure to urinate. She had none of that.
Denies dysuria ,frequency of urine now.
Objective Data
-
Labs:
Laboratory Results
02/05/24 02/05/24 02/05/24
01:09 09:07 17:00
WBC 13.4 H
Hgb 13.1
Hct 37.6
Plt Count 297
APTT 65.2 H 135.5 H Pending
Sodium 139
Potassium 3.8
Chloride 110 H
Carbon Dioxide 20 L
BUN 19 H
Creatinine 1.2 H
Glucose 88
Calcium 9.8
Total Bilirubin 0.7
AST 27
ALT 28
Alkaline Phosphatase 112
Vital Signs:
Vital Signs
Temp Pulse Resp BP Pulse Ox
98.3 F 76 16 146/90 98
02/05/24 07:30 02/05/24 07:30 02/05/24 07:30 02/05/24 07:30 02/05/24 08:59
Review of Systems
-
Constitutional: Denies Fever
EENT: Denies Sore Throat
Respiratory: Denies Cough
Neuro: Denies Dizzy
Physical Exam
-
General: No Apparent Distress
HEENT: Moist Mucous Membranes
Respiratory: Clear to Auscultation
Cardiac: Regular Rhythm and S1/S2
GI: Soft and Nontender
Genito-urinary: No Costovertebral Tender
Neuro: AO x 3
Psych: Calm; Negative Confused
Data Reviewed
-
CT Scan: Report Reviewed by me (CT A/P)
Labs: Labs Reviewed by me
[2024-02-05 11:30] VITALS: BP 140/85
[2024-02-05] MEDS: STERILE WATER FOR INJECTION 10 ML IV (12:16)
[2024-02-05] MEDS: ROCEPHIN 1000 MG IV (12:17)
--- NOTE | 2024-02-05 12:58 | CONS.URO ---
Consultation
-
Date/Time Consultation Requested: 02/05/24 1000
Date/Time Consultation Performed: 02/05/24 1200
Requesting Provider: Pranav
Performing Provider: Russ
Reason for Consultation: obstructing left ureteral stones, chronic left renal atrophy
Medical History
History of Present Illness
63F admitted w/ acute bilateral PE w/ large clot burden and evidence of right heart strain on CT chest.
Suspected secondary to DVT - US LE demonstrates non-occlusive right leg DVT.
Had a flight in mid 11/2023 to [place].
Hemodynamically stable.
Off O2 now.
Notes mild SOB.
Denies voiding symptoms.
Denies left flank, abdominal, or pelvic pain.
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
Did not F/U with her urologist at that time.
Denies h/o left flank or abdominal pain.
Notes stone passage episode summer 2022 - has stone specimen at home.
OF NOTE - pt reports being non-compliant w/ regular medical care (last mammogram 10 yrs ago, never had screening colonoscopy, does not have regular PMD).
Past Medical History
Past Medical History: Other (nephrolithiasis)
Social History
Tobacco: Non-smoker
Alcohol: None
Drug: None
Personal:
Living: With Family
Family History
Family History: Reviewed & Not Pertinent
Allergies/Home Medications
Allergies
Allergy/AdvReac Type Severity Reaction Status Date / Time
iodine Allergy Mild Shortness Verified 02/04/24 09:15
of Breath
shellfish derived Allergy Mild Shortness Verified 02/04/24 09:15
of Breath
Home Medications
�Medication �Instructions �Recorded �Confirmed �Type
diphenhydramine HCl 25 mg capsule 25 mg PO DAILYPRN PRN ALLERGIC 02/04/24 02/04/24 History
(Benadryl) REACTION
Review of Systems
-
History Source: Patient
A 12 point Review of Systems was completed except as noted: Yes
Physical Exam
Vital Signs
Vital Signs
Temp Pulse Resp BP Pulse Ox
97.7 F 77 16 140/85 98
02/05/24 11:30 02/05/24 11:30 02/05/24 11:30 02/05/24 11:30 02/05/24 08:59
Lab / Testing Results
Laboratory Results
02/05/24 09:07
02/05/24 09:07
Physical Exam
General: Well Developed, Well Nourished and No Apparent Distress
HEENT: Normocephalic and Anicteric
Respiratory: Non Labored Respirations
Cardiac: S1/S2
Breast: Deferred by me
GI: Soft, Non Tender and Non Distended
Genito-urinary: No Costovertebral Tend
Skin: Warm and Dry
Neuro: AO x 3, No Motor Deficits and Nonfocal/Grossly Intact
Hematologic/Lymphatic: No Lymphadenopathy
Psych: Calm and Intact Judgement
Assessment / Plan
-
Obstructing proximal left ureteral stones
Chronic left renal obstruction w/ suspected minimal left renal function
Bilateral PE
LE DVT
WBC 13
Cr 1.2 (baseline unknown)
UA trace LE, neg nitrites/WBCs/bacteria
CTAP w/o IV contrast =>
1). 2 adjacent obstructing calculi in the proximal left ureter just below the ureterovesical junction associated with severe left hydronephrosis.
There is severe left-sided renal cortical atrophy which may be on the basis of long-standing left-sided ureteral obstruction.
There is delayed function in the left kidney with persistent contrast in the left pelvicalyceal system
2). Several nonobstructing right-sided renal calculi measuring up to 11 mm..
Upon detailed review of CT imaging and patient's clinical history (absence of symptoms of obstructive uropathy), I suspect she has had long-standing obstruction (?years) of her left kidney from large volume stone burden w/n the left ureter.
Significant thinning of parenchyma noted c/w renal atrophy and loss of renal function.
In absence of UTI, symptoms of obstructive uropathy, and stable renal function (in context of left renal function loss), no urgent indication for stent insertion vs. PCN placement.
I discussed this at length w/ patient and spouse and reviewed CT imaging/report, labs, and her prior urologic history (>50 min).
Plan:
- No indication for urologic intervention
- No evidence of UTI - UCx pending
- Trend Cr
- Will follow-up w/ me as outpatient in 3-4 weeks
- Will discuss observation vs. ureteroscopic stone surgery and Lasix renal function scan
D/w patient and spouse.
D/w Dr. Rock.
Data Reviewed
-
Total Time Spent with Patient (in minutes): 55
CT Scan: Image personally visualized and interpreted, Report Reviewed by Me, Discussed with Physician, Discussed with Patient and Discussed with Family
Lab Data: Labs Reviewed, Discussed with Physician, Discussed with Patient and Discussed with Family
Old Records: Reviewed
[2024-02-05 13:28] LABS: Urine Albumin Negative (Neg - Trace); Urine Bilirubin Negative (Negative); Urine Character Clear (Clear); Urine Color Yellow; Urine Glucose Negative (Negative); Urine Ketone Negative (Negative); Urine Leukocyte Trace (Negative); Urine Nitrite Negative (Negative); Urine Occult Blood Negative (Negative); Urine Urobilinogen Negative (Neg - 1+)
[2024-02-05 15:18] LABS: Urine Squamous Cell 16-20 /LPF (Few)
[2024-02-05 15:19] LABS: Urine Bacteria Few (Negative); Urine Red Blood Cell 0-2 /HPF (0-2)
[2024-02-05 15:20] VITALS: BP 138/86
--- NOTE | 2024-02-05 16:26 | CM ---
media production manager reviewed patient's chart and met with patient and patient lives with her spouse in a 2 story home, patient is independent with adl's and ambulation no dme.
Ph[facility]acy: [facility]
PCP: patient to choose PCP, list of PCP's provided to patient.
[2024-02-05 17:48] LABS: APTT 68.7 Sec (23.4-35.0)
[2024-02-05] MEDS: HEPARIN 3200 UNITS IV (17:58)
[2024-02-05 19:30] VITALS: BP 154/98
[2024-02-05 23:15] VITALS: BP 127/85
[2024-02-06 03:42] VITALS: BP 123/76
[2024-02-06] MEDS: HEPARIN 25000 UNITS/250 ML IV ×2 (07:02→15:46)
[2024-02-06 07:30] VITALS: BP 138/86
[2024-02-06 08:31] LABS: Hematocrit 37.6 % (37.0-47.0); Hemoglobin 12.8 g/dL (12.0-16.0); Mean Corpuscular Hgb 32.2 pg (27.0-31.0); Mean Corpuscular Volume 94.5 fL (81.0-99.0); Mean Platelet Volume 9.9 fL (7.4-10.4); Platelet Count 268 10^3/uL (130-400); Red Blood Cell Count 3.98 10^6/uL (4.20-5.40); Red Cell Dist. Width 12.9 % (11.5-14.5); White Blood Cell Count 6.9 10^3/uL (4.8-10.8)
[2024-02-06 08:33] LABS: APTT 69.7 Sec (23.4-35.0)
[2024-02-06] MEDS: HEPARIN 3200 UNITS IV (08:49)
--- NOTE | 2024-02-06 10:12 | W.PN.PUL.V3 ---
Today's Communication / Plan
-
Heparin drip
Convert to oral anticoagulant
Slowly increase activity
Urology without immediate plans for surgical intervention
Assessment
-
63-year-old female presented with exertional shortness of breath over the last 6 weeks and noted to have significant bilateral pulmonary emboli-pulmonary consulted for pulmonary embolism and shortness of breath 02/04/2024.
Bilateral pulmonary emboli with RV strain-suspect subacute and unprovoked-outside chance long plane flight 6 weeks ago with possible covid infection caused hypercoagulability and provoked status
PESI-63-low risk
D-dimer elevation 01/25/2024
Renal insufficiency with markedly abnormal appearing kidney on CT chest
Hyperglycemia
Conditions present prior to admission:
None-specifically no hypertension, hyperlipidemia, CAD, pulmonary, renal, gastrointestinal disease
Plan
Respiratory status is currently stable
Supplemental oxygen as needed-not requiring-currently on room air
Aspiration precautions
Incentive spirometry
CT chest personally reviewed-see below
Echocardiogram 02/04/2024-EF 65-70%, enlarged right ventricle, severe elevation PA systolic 73 with enlarged right ventricular size and reduced right ventricular systolic function
Lower extremity ultrasound 02/04/2024-incomplete occlusion deep venous thrombosis in the right popliteal vein
Recommend hypercoagulable workup with unprovoked clot in the future
Full PESI and sPESI summarized above
Heparin drip can be changed to oral anticoagulant
Convert to oral anticoagulant-3 to 6 months
Benefits and risks of thrombolytics therapy were reviewed with patient
Patient has no tachycardia and no hypotension-currently risks of aggressive thrombolytic therapy outweigh [id number] notified of options, reasons for conservative standard of care therapy and is in agreement
Cardiology saw the patient as an outpatient-consider consultation
Nephroliths and atrophic kidney noted on CT incidentally
CT abdomen and pelvis 02/05/2020 4-2 adjacent obstructing calculi proximal left ureter just below the ureterovesical junction associated with severe left hydronephrosis, severe left sided renal cortical atrophy which may be on the basis of
longstanding left-sided ureteral obstruction, several nonobstructing right sided renal calculi
Urology evaluation noted-correspondence reviewed-no immediate surgical intervention is recommended
Monitor renal function
Outpatient urologic follow-up
DVT prophylaxis-on full anticoagulation
Early nutrition
Early mobilization
Answered all patient's questions-advised against plane flights to help daughters knee operation in the next 4 weeks
Avoid heavy exertion and heavy exercise for the next 4-6 weeks with gentle reintroduction
Outpatient pulmonary [id number] need eventual PFTs, eventual repeat lower extremity ultrasound, CT chest, and echocardiogram in addition to hypercoagulable workup
Outpatient appropriate malignancy screening including colonoscopy and mammogram which she has not had in over 10 years
Diagnostic data:
CT chest 02/04/2024-moderate to large clot burden pulmonary emboli with evidence for right ventricular strain, focal area of pulmonary infarction superior segment right lower lobe, right-sided nephroliths are identified with left kidney appearing to
be moderate to severely atrophic and new finding from 2005 with dilation of visualized calyces within the upper pole of the left kidney
EKG 02/04/2024-sinus rhythm, left atrial enlargement, inferior Q waves, poor R wave progression anteriorly and T wave abnormalities consider anterolateral ischemia
Subjective Data
-
Date of Service:
Date of Service: February 06, 2024
Chief Complaint: Pulmonary Follow Up and Dyspnea Follow Up
Subjective:
Denies any shortness of breath, chest pain, tightness, wheezing, pleurisy, and started to ambulate without difficulties with minimal ambulation in regards to shortness of breath, no abdominal pain, back pain or lower extremity swelling
Review of Systems
General: Other (Per HPI)
Objective Data
Data Reviewed
Vital Signs / I&O:
Vital Signs
Temp Pulse Resp BP Pulse Ox
97.5 F 66 14 138/86 96
02/06/24 07:30 02/06/24 07:30 02/06/24 07:30 02/06/24 07:30 02/06/24 07:30
Intake and Output
02/05/24 02/06/24 02/07/24
06:59 06:59 06:59
Intake Total 1220 / 1220
Balance 1220 / 1220
SaO2: 96
Nasal Cannula flow liters per minute: 3
Physical Exam
General: Respiratory Distress (n) and Comfortable
HEENT: Normocephalic, Anicteric and Moist Mucous Membranes
Cardiovascular: Regular Rhythm, Peripheral Edema (Trace) and Other (No increased P2 or RV heave)
Respiratory: Wheeze (n), Crackles (n), Rhonchi, Non-Labored Respirations, Accessory Resp Muscle Use (n) and Stridor (n)
GI: Soft, Non Distended and Non Tender
Neurology: Awake, Alert and No Motor Deficits
Skin: Warm, Good Color, Cyanosis (n), Jaundice (n) and Rash (n)
Labs/Micro/Reports
Lab Data
02/06/24 08:14
Laboratory Results
02/05/24 02/06/24 02/06/24
17:15 00:39 07:25
APTT 68.7 H 148.0 H Cancelled
02/06/24
08:14
APTT 69.7 H
[2024-02-06 10:13] LABS: Blood Urea Nitrogen 28 mg/dl (7-17); Calcium 9.7 mg/dl (8.4-10.2); Carbon Dioxide 20 mmol/L (22-30); Chloride 109 mmol/L (98-107); Estimated Creatinine Clearance 46 ml/min; Glucose 84 mg/dl (70-99); Potassium 4.8 mmol/L (3.5-5.1); Sodium 141 mmol/L (135-145); eGFR 45.92
--- NOTE | 2024-02-06 10:20 | PN.CDI ---
CDI
- -
CDI:
Physician Documentation Request
Admit Date: 02/04/24 12:50
Dear Doctor Pranav,
Patient admitted for pulmonary embolism.
02/04 Hospitalist PN: 'Acute bilateral PE with large clot burden and evidence of right heart strain on CT chest...Urgent echo shows right ventricular strain with elevated pulmonary arterial systolic pressure.'
02/03 Echo Report: 'Enlarged right ventricular size. Mildly reduced right ventricular systolic function.'
Based on the above, could you clarify in the progress notes, the appropriate diagnosis, if significant, that supports the above abnormalities and additional evaluation, monitoring and/or treatment rendered:
Pulmonary embolism with acute cor pulmonale
Pulmonary embolism without cor pulmonale
Other
Use of terms such as suspected, likely, concern for, or probable (associated with a specific diagnosis that is being evaluated, monitored, or treated as if it exists) are acceptable and can be coded in the inpatient setting, when documented at the
time of discharge.
Thank you,
Rosa Downey RN, BSN
CDI Specialist
Available via [facility] text
Please use your independent medical judgment in providing your response.
[2024-02-06] MEDS: ROCEPHIN 1000 MG IV (11:18)
[2024-02-06] MEDS: STERILE WATER FOR INJECTION 10 ML IV (11:19)
[2024-02-06 11:32] VITALS: BP 146/85
--- NOTE | 2024-02-06 13:11 | W.PN.HOSP.TC ---
Addendum entered and electronically signed by Myke Rock MD 02/12/24 11:06:
Acute PE causing acute cor pulmonale .
Original Note:
Today's Communication/Plan
-
DC planning
Assessment / Plan
Assessment / Plan
Acute bilateral PE with large clot burden and evidence of right heart strain on CT chest-patient hemodynamically stable. There is also concern about pulmonary infarct but patient without any chest pain. Urgent echo shows right ventricular strain
with elevated pulmonary arterial systolic pressure.
Suspect secondary to DVT-ultrasound of the leg shows nonocclusive right leg DVT. She had a flight journey in mid November to [place].
Remains hemodynamically stable.
Off of oxygen.
Asymptomatic without chest pain or shortness of breath.
Continue with IV heparin today and switch to oral AC later today. CM to look into cost of DOAC.
Pulmonary following-need outpatient follow-up with them with regards to her right-sided pressures. Also a hematology eval after finishing treatments for thrombophilia workup.
I suspect this may be a provoked event with a DVT after long journey in the flight.
Abnormal EKG-T wave inversion in inferior and anterior leads noted. She is without any cardiac risk factors. Non-smoker. Admitting troponins are negative. ECHO with RV strain and suspect EKG changes may be related to it. Repeat EKG-criteria for
inferior infarct are no longer present. T wave inversion no longer evident in lateral leads. Again suspect changes may be related to PE. T wave abnormality in anterior leads persists.
Abnormal creatinine-suspect chronic kidney disease 3. Patient says she was told in urgent care center her creatinine was slightly abnormal. CT of the chest today picks up atrophic left kidney and there is also calyceal dilatation especially of the
upper pole of the left kidney. History of nephrolithiasis so CT of the abdomen pelvis was obtained -see below. Follow-up creatinine since she received contrast- Cr remains stable at 1.3. Advised to see PCP and keep an eye
Left ureterovesical obstructing stone with calyceal dilatation and as well as atrophic kidney-patient completely asymptomatic from it without pain symptoms are genitourinary symptoms. Appreciate nephrology input who thinks there is a chronic
obstruction and may be secondary atrophy of the left kidney. Recommend no interventions at the current time and recommends a follow-up as an outpatient. Without symptoms and negative urine analysis I doubt any infection. DC ceftriaxone.
The transient leukocytosis could be related to PE itself as a reactive process.
Elevated blood pressure-patient denies any history of hypertension-mostly under goal
Full code
DC once coverage for DOAC known.
Advised ADL only ;no sternous activity . Advised against air travel planned in 3 weeks.
Anticipated Discharge: Today
Subjective/Interval History
-
Date of Service: February 06, 2024
No shortness of breath or chest pain at rest. Intermittent walking to realize if any exertional shortness of breath persist. Walking to the bathroom without any difficulty.
Again denies any abdominal pain and flank pain. Denies any dysuria frequency of urine.
Objective Data
-
Labs:
Laboratory Results
02/06/24 02/06/24 02/06/24
00:39 07:25 08:14
WBC 6.9
Hgb 12.8
Hct 37.6
Plt Count 268
APTT 148.0 H Cancelled 69.7 H
Sodium 141
Potassium 4.8 D
Chloride 109 H
Carbon Dioxide 20 L
BUN 28 H
Creatinine 1.3 H
Glucose 84
Calcium 9.7
02/06/24
14:20
WBC
Hgb
Hct
Plt Count
APTT Pending
Sodium
Potassium
Chloride
Carbon Dioxide
BUN
Creatinine
Glucose
Calcium
Vital Signs:
Vital Signs
Temp Pulse Resp BP Pulse Ox
98.1 F 66 14 146/85 96
02/06/24 11:32 02/06/24 11:32 02/06/24 11:32 02/06/24 11:32 02/06/24 11:32
I&O
02/05/24 02/06/24 02/07/24
06:59 06:59 06:59
Intake Total 1220 / 1220
Balance 1220 / 1220
Review of Systems
-
Constitutional: Denies Fever
Respiratory: Denies Trouble Breathing
Cardiac: Denies Chest Pain
Abdomen/GI: Denies Abdominal Pain, Nausea, Vomiting or Diarrhea
Neuro: Denies Dizzy
Physical Exam
-
General: No Apparent Distress
HEENT: Moist Mucous Membranes
Respiratory: Clear to Auscultation and Non Labored Respirations; Negative Accessory Resp Muscle Use
Cardiac: Regular Rhythm and S1/S2
GI: Soft
Genito-urinary: No Costovertebral Tender
Neuro: AO x 3
Data Reviewed
-
Labs: Labs Reviewed by me
--- NOTE | 2024-02-06 13:40 | CM ---
manager fleet continues to follow with patient progress and rn case manager hospice provided patient with the cost of Eliquis, Xarelto, Lovenox and plan is for patient to return to home on Eliquis, coupons have been provided to patient along with a list of
PCP's for patient to pick a physician.
Plan; Home with spouse.
--- NOTE | 2024-02-06 15:06 | W.DS.TRANS ---
DC Summary - Senior Scrum Master
-
Discharge Instructions:
Discharge Diagnosis/Procedures BL extensive PE with right ventricular strain;
Chronic left ureteral obstruction with stones
and left renal atrophy; CKD3
Diet Regular
Activity As tolerated,No strenuous activity
Driving Restrictions Can start driving starting next saturday
Blood Work BMP in one week -arrange through your PCP
Instructions:
Stand-Alone Forms:
Changes to Home Medications: Yes
Discharge Medications:
DC Medications w/original date entered in [facility]
diphenhydramine HCl 25 mg capsule (Benadryl) 25 mg PO DAILYPRN PRN ALLERGIC REACTION 02/04/24
apixaban 5 mg tablet (Eliquis) 5 mg PO BID #76 tabs 02/06/24
Home Medication Changes
New med - Eliquis
Pending Results: No
--- NOTE | 2024-02-06 15:10 | W.DCSUMMARY ---
Discharge Summary
Discharge Data
Date of Admission: 02/04/24
Date of Discharge: 02/06/24
-
Pending Results: No
Hospital Course
Primary diagnosis:
Acute bilateral pulm embolism with large clot burden
Nonocclusive right leg popliteal vein deep vein thrombosis
Possible chronic kidney disease stage III
Chronic left ureteral obstruction with left renal atrophy.
Hospital course:
63-year-old lady who had no previous medical history but also no previous preventive care presented with shortness of breath. In mid November she flew to [place] and came back with an episode of acute laryngitis which was treated symptomatically by
self.
In mid December she had an acute onset of shortness of breath for which she had 2 visits to urgent care center was treated as possible bronchitis. She was referred to cardiology as the EKG was abnormal. A D-dimer was noted to be elevated so he she had
a CAT scan of the chest on the day of admission which showed large bilateral PE with right ventricular strain on the chest CT.
On admission she was hemodynamically stable. Not hypoxic. No chest pain. She had exertional shortness of breath.
She was admitted for treatments and further evaluation. She was put on IV heparin for 48 hours. She had an echocardiogram which showed mild RV dysfunction with elevated pulmonary systolic pressures of 73 mmHg. Moderate TR noted.
Ultrasound showed nonocclusive popliteal vein DVT. Unclear if this is a provoked event after a flight journey or unprovoked. I suspect the former.
She was seen by pulmonary and made a switch to oral Eliquis after 48 hours of IV heparinization. She will follow with Pulmonary as OP after discharge.
Her chest CT also picked up a left renal atrophy with a suggestion of dilation of the visualized calyces within the upper pole the left kidney.On admission her creatinine was noted to be 1.2 which is close to her baseline of 1.4 based on early labs
10 days ago. She never had a blood test recently. With a history of nephrolithiasis obtained a CT of the abdomen pelvis which showed 2 adjacent obstructing calculi in the proximal left ureter just below the ureterovesical junction associated with
severe left hydronephrosis.There is severe left-sided renal cortical atrophy which may be on the basis of long-standing left-sided ureteral obstruction.There is delayed function in the left kidney with persistent contrast in the left pelvicalyceal
system. There are several nonobstructing right-sided renal calculi measuring up to 11 mm.
The last time she had a symptomatic nephrolithiasis was a year ago. Currently she is without any abdominal pain, flank pain or tenderness, or any symptoms of dysuria frequency of urine. Urinalysis was negative as well. No fevers.
Was seen by urologist who felt this probably is a chronic obstruction leading onto atrophy and this current time with acute PE and right ventricular strain advises against any interventions. She will follow-up with urology as an outpatient.
Consultants on board:
Pulmonary-Dr. Ewing
Urology Talon Wesley
Discharge Plan
-
Patient Disposition: Home (Routine Discharge)
Discharge Diagnosis/Procedures: BL extensive PE with right ventricular strain; Chronic left ureteral obstruction with stones and left renal atrophy; CKD3
Diet: Regular
Activity: As tolerated and No strenuous activity
Driving Restrictions: Can start driving starting next saturday
Blood Work: BMP in one week -arrange through your PCP
Referrals:
Raffi Solano MD [Active] - (Please call [phone] to schedule a follow-up visit with Dr. Solano within 3-4 weeks of discharge.)
NONE,* [Family Provider] - in less than 1 week
Robbie Ewing MD [Active] - in two to three weeks
(Dr. Ewing or nurse practitioner
Eventual PFTs, potential reimaging-CT, lower extremity ultrasound, echocardiogram and hypercoagulable workup)
Prescriptions:
New
Eliquis 5 mg tablet
5 mg PO BID Qty: 76 0RF
Rx Instructions:
Take 10mg(2 tabs) twice for next 6 1/2 days and then 5mg(1 tab) twice a day
Continued
diphenhydramine HCl [Benadryl] 25 mg Capsule
25 mg PO DAILYPRN PRN (Reason: ALLERGIC REACTION)
Discharge Orders:
Discharge Patient (As Directed); Ordered 02/06/24
Ordered By: Myke Rock
Discharge Date and Time
Print Language: [place]
[2024-02-06 15:50] VITALS: BP 127/87
[2024-02-06] MEDS: ELIQUIS 10 MG PO (17:56)
== END 2024-02-06 18:15 | disposition home or self-care (01) | DRG 175 ==
LOC: 4 WEST ACU 12:50
PROVIDERS: ADMITTING PHYSICIAN Internal Medicine; CONSULT PHYSICIAN Surgery; EMERGENCY PHYSICIAN Emergency Medicine; OTHER PHYSICIAN Internal Medicine Critical Care Medicine
DX: I26.09 Other pulmonary embolism with acute cor pulmonale (principal); I82.431 Acute embolism and thrombosis of right popliteal vein; N13.5 Crossing vessel and stricture of ureter without hydronephrosis; N26.1 Atrophy of kidney (terminal); N18.30 Chronic kidney disease, stage 3 unspecified; Z87.442 Personal history of urinary calculi
CPT/HCPCS: 74176; 80048; 80053; 81003; 81015; 84484; 85025; 85027; 85610; 85730; 93005; 93306; 93970; 96374; 96376; 99285

== ENCOUNTER → 2024-02-15 10:14 | Outpatient (REF) | payer OTHER, SELFPAY ==
[2024-02-15 12:37] LABS: Blood Urea Nitrogen 14 mg/dl (7-17); Calcium 9.4 mg/dl (8.4-10.2); Carbon Dioxide 22 mmol/L (22-30); Chloride 108 mmol/L (98-107); Glucose 79 mg/dl (70-99); Potassium 4.3 mmol/L (3.5-5.1); Sodium 141 mmol/L (135-145); eGFR 50.55
== END ==
LOC: REG 10:14
PROVIDERS: ATTENDING PHYSICIAN Nurse Practitioner Family
DX: R79.89 Other specified abnormal findings of blood chemistry (principal)
CPT/HCPCS: 36415; 80048

== ENCOUNTER → 2024-03-03 08:38 | Outpatient (REF) | payer OTHER, SELFPAY | LOC: CLAB 08:38 | PROVIDERS: ATTENDING PHYSICIAN Surgery | DX: N20.0 Calculus of kidney (principal) | CPT/HCPCS: 82365 ==

== ENCOUNTER → 2024-05-07 16:19 | Outpatient (REF) | payer OTHER, SELFPAY ==
[2024-05-07 17:51] LABS: D-Dimer 0.34 ug/mlFEU (0.00-0.50)
== END ==
LOC: REG 16:19
PROVIDERS: ATTENDING PHYSICIAN Nurse Practitioner Adult Health; FAMILY PHYSICIAN Family Medicine
DX: I26.99 Other pulmonary embolism without acute cor pulmonale (principal)
CPT/HCPCS: 36415; 85379

== ENCOUNTER → 2024-05-08 07:29 | Outpatient (REF) | payer OTHER, SELFPAY | LOC: RAD 07:29 | PROVIDERS: ATTENDING PHYSICIAN Nurse Practitioner Adult Health; FAMILY PHYSICIAN Family Medicine | DX: I26.99 Other pulmonary embolism without acute cor pulmonale (principal) | CPT/HCPCS: 93971 ==

== ENCOUNTER → 2024-06-26 07:40 | Outpatient (REF) | payer OTHER, SELFPAY ==
[2024-06-26 08:53] LABS: Blood Urea Nitrogen 30 mg/dl (7-17)
== END ==
LOC: REG 07:40
PROVIDERS: ATTENDING PHYSICIAN Internal Medicine Critical Care Medicine; FAMILY PHYSICIAN Family Medicine
DX: Z01.812 Encounter for preprocedural laboratory examination (principal)
CPT/HCPCS: 36415; 82565; 84520

== ENCOUNTER → 2024-07-02 07:49 | Outpatient (REF) | payer OTHER, SELFPAY | LOC: RAD 07:49 | PROVIDERS: ATTENDING PHYSICIAN Internal Medicine Critical Care Medicine; FAMILY PHYSICIAN Family Medicine | DX: I26.99 Other pulmonary embolism without acute cor pulmonale (principal); I82.431 Acute embolism and thrombosis of right popliteal vein | CPT/HCPCS: 71275; 93970; Q9967 ==

== ENCOUNTER → 2024-08-07 15:49 | Outpatient (REF) | payer OTHER, SELFPAY ==
[2024-08-07 17:10] LABS: D-Dimer 0.83 ug/mlFEU (0.00-0.50)
[2024-08-10 08:48] LABS: Cardiolipin IgA Antibody <10 APL (<=11); Cardiolipin IgM Antibody <10 MPL (<=12); Cardiolipin Igg Antibody <10 GPL (<=14)
== END ==
LOC: REG 15:49
PROVIDERS: ATTENDING PHYSICIAN Internal Medicine Hematology & Oncology; FAMILY PHYSICIAN Family Medicine
DX: I26.99 Other pulmonary embolism without acute cor pulmonale (principal); I82.401 Acute embolism and thrombosis of unspecified deep veins of right lower extremity
CPT/HCPCS: 36415; 81240; 81241; 84586; 85300; 85305; 85379; 85610; 85613; 85730; 86146; 86147

== ENCOUNTER → 2024-10-13 09:19 | Outpatient (REF) | payer OTHER, SELFPAY ==
[2024-10-13 17:23] LABS: Urine Albumin Negative (Neg - Trace); Urine Bilirubin Negative (Negative); Urine Character Clear (Clear); Urine Color Yellow; Urine Glucose Negative (Negative); Urine Ketone Negative (Negative); Urine Leukocyte Negative (Negative); Urine Nitrite Negative (Negative); Urine Occult Blood Negative (Negative); Urine Urobilinogen Negative (Neg - 1+)
== END ==
LOC: CLAB 09:19
PROVIDERS: ATTENDING PHYSICIAN Surgery
DX: N39.0 Urinary tract infection, site not specified (principal)
CPT/HCPCS: 81003; 87086

== ENCOUNTER → 2024-10-16 08:25 | Outpatient (REF) | payer OTHER, SELFPAY | LOC: HWRAD 08:25 | PROVIDERS: ATTENDING PHYSICIAN Surgery; FAMILY PHYSICIAN Family Medicine | DX: N13.2 Hydronephrosis with renal and ureteral calculous obstruction (principal) | CPT/HCPCS: 74176 ==

== ENCOUNTER → 2024-11-19 08:45 | Outpatient (REF) | payer OTHER, SELFPAY | LOC: CLAB 08:45 | PROVIDERS: ATTENDING PHYSICIAN Surgery | DX: N26.1 Atrophy of kidney (terminal) (principal); N20.0 Calculus of kidney; N13.2 Hydronephrosis with renal and ureteral calculous obstruction | CPT/HCPCS: 82365 ==

== ENCOUNTER → 2025-02-19 10:26 | Outpatient (REF) | payer OTHER, SELFPAY | LOC: RAD 10:26 | PROVIDERS: ATTENDING PHYSICIAN Surgery; FAMILY PHYSICIAN Family Medicine | DX: N20.1 Calculus of ureter (principal); N26.1 Atrophy of kidney (terminal) | CPT/HCPCS: 78708; A9539 ==

== ENCOUNTER 2025-06-10 04:38 | Inpatient (IN) | payer OTHER, SELFPAY ==
[2025-06-09 22:05] VITALS: BP 189/102
[2025-06-09 23:34] VITALS: BMI 29.6
[2025-06-09] MEDS: DILAUDID 1 MG IV (23:53)
[2025-06-09] MEDS: ZOFRAN 4 MG IV (23:53)
[2025-06-09 23:56] LABS: Hematocrit 37.1 % (37.0-47.0); Hemoglobin 13.0 g/dL (12.0-16.0); Mean Corp Hgb Conc. 35.0 g/dL (33.0-37.0); Mean Corpuscular Volume 95.9 fL (81.0-99.0); Nucleated Red Blood Cells % 0 %; Platelet Count 277 10^3/uL (130-400); Red Cell Dist. Width 12.1 % (11.5-14.5)
[2025-06-10] VITALS (15 sets, daily range): BP systolic 99–166; BP diastolic 53–90; BMI 28.7
[2025-06-10] MEDS: NSS 500 IV (00:02)
[2025-06-10 00:22] LABS: ALT (SGPT) 25 U/L (0-35); AST (SGOT) 28 U/L (14-36); Albumin 4.5 g/dl (3.5-5.0); Alkaline Phosphatase 88 U/L (38-126); Blood Urea Nitrogen 24 mg/dl (7-17); Calcium 10.6 mg/dl (8.4-10.2); Carbon Dioxide 23 mmol/L (22-30); Chloride 100 mmol/L (98-107); Estimated Creatinine Clearance 29 ml/min; Glucose 111 mg/dl (70-99); Potassium 3.8 mmol/L (3.5-5.1); Sodium 135 mmol/L (135-145); Total Protein 7.0 g/dl (6.3-8.2); eGFR 27.21
--- NOTE | 2025-06-10 00:33 | ED.GENMED ---
History of Present Illness
<Janice Crockett PA-C - Last Filed: 06/10/25 06:06>
General
Chief Complaint: Flank Pain
Source: patient
Exam Limitations: none
Time Seen by Provider: 06/10/25 00:32
Nursing documentation reviewed up to this point in time: agreed with
History of Present Illness
History of Present Illness:
64-year-old female presents to the ER today with concerns of right flank pain radiating into the groin. She follows with Dr. Solano for urology. Her pain feels like a kidney stone. The patient reports having passed kidney stone spontaneously in
the past. She did not take her evening dose of Eliquis this past evening. Patient denies any left-sided pain. Currently her pain is a 3-4 on a pain scale. She is given Dilaudid prior to my assessment. Patient experiences nausea with episodes of
vomiting at home but denies fever. She confirms that the pain is only slightly tender when she presses. She notes some groin pain as well. She has no chest pain or shortness of breath. She does note some blood in her urine.
Review of Systems
<Janice Crockett PA-C - Last Filed: 06/10/25 06:06>
Review of Systems
All Other Systems: ROS reviewed and negative except as documented in HPI and ROS
Phy Exam
<Janice Crockett PA-C - Last Filed: 06/10/25 06:06>
Physical Exam
Physical Exam:
General: Patient is well appearing and in no acute distress; non-toxic
Skin: Warm and dry, no rashes or lesions
Head: Normocephalic, atraumatic
Eyes: Sclera non-icteric. EOMs intact.
Cardiac: Regular rate and rhythm, no murmurs
Peripheral Vascular: No lower extremity swelling or edema
Pulm: Normal respiratory effort, no wheezes, rales, rhonchi
Abdomen: No abdominal tenderness to palpation
Neuro: CN II-XII intact, no focal neurologic deficits.
Psychiatric: Appropriate mood and affect.
Course
<Janice Crockett PA-C - Last Filed: 06/10/25 06:06>
Orders/Labs/Results
Orders:
Orders
06/09/25 23:44
IV Insert/Care/Rem.- Treatment PRN
06/09/25 23:46
Complete Blood Count/With Diff Urgent
Comprehensive Metabolic Panel Urgent
06/09/25 23:48
HYDROmorphone [Dilaudid] 1 mg IV NOW STA
Ondansetron Injectable [Zofran] 4 mg IV NOW STA
06/09/25 23:50
Urinalysis Reflex To Culture Urgent
Date Specimen was Collected: 06/10/25
Time Specimen was Collected: 01:49
06/10/25
CT Abd/pel Without Iv Or Oral Urgent
Reason For Exam: acute R flank pain
06/10/25 00:01
0.9% Sodium Chloride 500 ml [Nss] 500 ml IV BOLUS
06/10/25 01:53
Urine Microscopic Reflex Cult Urgent
Urine Culture Urgent
MICHELLE Source: U
Specimen Description:
Date Specimen was Collected: 06/10/25
Time Specimen was Collected: 01:49
06/10/25 02:05
HYDROmorphone [Dilaudid] 0.5 mg IV NOW STA
06/10/25 03:38
Piperacillin/Tazo 4.5 Gram [Zosyn] 4.5 gram in 100 ml IV NOW
06/10/25 04:17
Admit/Transfer Patient As Directed
Co-Sign Provider:
Level of Care: Inpatient admission
Assign to:: Medical/Surgical
Physician / Group: Dolores
Diagnosis: bilateral obstructing nephrolithiasis
Reason for Hospitalization: bilateral obstructing nephrolithiasis, NING, diverticulitis
Expected length of stay greater than two midnights?: Yes
ELOS- Estimated Length of Stay in days: 2
I certify the patient meets the requirements for IP care: Yes
PRN Pain Medication Management As Directed
May give lesser potent ordered pain med per pt: Yes
preference::
Protocol:: Medication orders for pain may be administered in a
manner that supports deferring to patient preference
when the pt is:
- Requesting an ordered lesser potent pain medication.
Least to most potent pain medications are defined
as: acetaminophen < NSAID < tramadol < opioids
(morphine, oxycodone, hydromorphone).
- Requesting a lesser dose of the same medication IF
ORDERED.
- Requesting a less intrusive route of administration
if both routes are prescribed by the provider (PO <
IV).
06/10/25 04:18
Code Status As Directed
Resuscitation Status: Full Code
06/10/25 04:33
HYDROmorphone [Dilaudid] 0.5 mg IV NOW STA
Abnormal Lab Results
06/09/25 06/10/25
23:46 01:53
WBC 12.2 H 10^3/uL
(4.8-10.8)
RBC 3.87 L 10^6/uL
(4.20-5.40)
MCH 33.6 H pg
(27.0-31.0)
Absolute Neuts (auto) 10.9 H 10^3/uL
(1.4-6.5)
Absolute Lymphs (auto) 0.6 L 10^3/uL
(1.2-3.4)
Neutrophils % 89.4 H %
(42.2-75.2)
Lymphocytes % 5.2 L %
(20.5-51.1)
BUN 24 H mg/dl
(7-17)
Creatinine 2.0 H mg/dL
(0.6-1.0)
Glucose 111 H mg/dl
(70-99)
Calcium 10.6 H mg/dl
(8.4-10.2)
Urine Ketones 2+ A
(Negative)
Ur Occult Blood Reflex 2+ A
(Negative)
Urine Bacteria (Reflex) Many A
(Negative)
Urine Albumin (Reflex) 1+ A
(Neg - Trace)
06/09/25 23:46
06/09/25 23:46
Vital Signs
Initial and Last Documented VS:
Initial Vital Signs
Temp Pulse Resp BP Pulse Ox
98.8 F 62 15 189/102 98
06/09/25 22:05 06/09/25 22:05 06/09/25 22:05 06/09/25 22:05 06/09/25 22:05
Last Documented Vital Signs
Temp Pulse Resp BP Pulse Ox
98.8 F 62 16 152/90 88
06/09/25 22:05 06/10/25 02:21 06/10/25 02:21 06/10/25 02:21 06/10/25 02:21
<Ki Pitt MD - Last Filed: 06/10/25 01:14>
Orders/Labs/Results
Orders:
Orders
06/09/25 23:44
IV Insert/Care/Rem.- Treatment PRN
06/09/25 23:46
Complete Blood Count/With Diff Urgent
Comprehensive Metabolic Panel Urgent
06/09/25 23:48
HYDROmorphone [Dilaudid] 1 mg IV NOW STA
Ondansetron Injectable [Zofran] 4 mg IV NOW STA
06/09/25 23:50
Urinalysis Reflex To Culture Urgent
Date Specimen was Collected: 06/10/25
Time Specimen was Collected: 01:49
06/10/25
CT Abd/pel Without Iv Or Oral Urgent
Reason For Exam: acute R flank pain
06/10/25 00:01
0.9% Sodium Chloride 500 ml [Nss] 500 ml IV BOLUS
06/10/25 01:53
Urine Microscopic Reflex Cult Urgent
Urine Culture Urgent
MICHELLE Source: U
Specimen Description:
Date Specimen was Collected: 06/10/25
Time Specimen was Collected: 01:49
06/10/25 02:05
HYDROmorphone [Dilaudid] 0.5 mg IV NOW STA
06/10/25 03:38
Piperacillin/Tazo 4.5 Gram [Zosyn] 4.5 gram in 100 ml IV NOW
06/10/25 04:17
Admit/Transfer Patient As Directed
Co-Sign Provider:
Level of Care: Inpatient admission
Assign to:: Medical/Surgical
Physician / Group: Dolores
Diagnosis: bilateral obstructing nephrolithiasis
Reason for Hospitalization: bilateral obstructing nephrolithiasis, NING, diverticulitis
Expected length of stay greater than two midnights?: Yes
ELOS- Estimated Length of Stay in days: 2
I certify the patient meets the requirements for IP care: Yes
PRN Pain Medication Management As Directed
May give lesser potent ordered pain med per pt: Yes
preference::
Protocol:: Medication orders for pain may be administered in a
manner that supports deferring to patient preference
when the pt is:
- Requesting an ordered lesser potent pain medication.
Least to most potent pain medications are defined
as: acetaminophen < NSAID < tramadol < opioids
(morphine, oxycodone, hydromorphone).
- Requesting a lesser dose of the same medication IF
ORDERED.
- Requesting a less intrusive route of administration
if both routes are prescribed by the provider (PO <
IV).
06/10/25 04:18
Code Status As Directed
Resuscitation Status: Full Code
06/10/25 04:33
HYDROmorphone [Dilaudid] 0.5 mg IV NOW STA
Abnormal Lab Results
06/09/25 06/10/25
23:46 01:53
WBC 12.2 H 10^3/uL
(4.8-10.8)
RBC 3.87 L 10^6/uL
(4.20-5.40)
MCH 33.6 H pg
(27.0-31.0)
Absolute Neuts (auto) 10.9 H 10^3/uL
(1.4-6.5)
Absolute Lymphs (auto) 0.6 L 10^3/uL
(1.2-3.4)
Neutrophils % 89.4 H %
(42.2-75.2)
Lymphocytes % 5.2 L %
(20.5-51.1)
BUN 24 H mg/dl
(7-17)
Creatinine 2.0 H mg/dL
(0.6-1.0)
Glucose 111 H mg/dl
(70-99)
Calcium 10.6 H mg/dl
(8.4-10.2)
Urine Ketones 2+ A
(Negative)
Ur Occult Blood Reflex 2+ A
(Negative)
Urine Bacteria (Reflex) Many A
(Negative)
Urine Albumin (Reflex) 1+ A
(Neg - Trace)
06/09/25 23:46
06/09/25 23:46
Vital Signs
Initial and Last Documented VS:
Initial Vital Signs
Temp Pulse Resp BP Pulse Ox
98.8 F 62 15 189/102 98
06/09/25 22:05 06/09/25 22:05 06/09/25 22:05 06/09/25 22:05 06/09/25 22:05
Last Documented Vital Signs
Temp Pulse Resp BP Pulse Ox
98.8 F 62 16 152/90 88
06/09/25 22:05 06/10/25 02:21 06/10/25 02:21 06/10/25 02:21 06/10/25 02:21
<Janice Crockett PA-C - Last Filed: 06/10/25 06:06>
MDM/Problems Addressed
Differential Diagnosis Includes:
Renal stone, appendicitis, diverticulitis, UTI
MDM/Problems Addressed:
64-year-old female presents ER today with concerns of right sided flank pain. She also has associated nausea and vomiting. She was found to have bilateral obstructing renal stones with an acute NING. She is making minimal urine. Her creatinine is
2.0. Urology made aware. Dr. Barker plans to take patient to the OR in 2 hours. CAT scan also noted mild diverticulitis. Will cover with dose of Zosyn. ED attending made aware. Patient referred for admission. No signs of urinary tract
infection.
<Janice Crockett PA-C - Last Filed: 06/10/25 06:06>
*Pulse Oximetry
SaO2: 98
Patient hypoxic: no
*Critical Care Note
Total Time (30-74mins, 75-104mins- exclusive of procedures): Not Applicable
Data Reviewed
Review of Other/Old Records Reveals: Records (Reviewed discharge summary from 02/06/2024 patient seen with PE with right ventricular strain)
Source: patient and records
ED Attending Note
<Janice Crockett PA-C - Last Filed: 06/10/25 06:06>
-
Portions of this chart may have been created with voice recognition software.� Occasional wrong word or��sound alike� substitutions may have occurred due to the inherent limitations of voice recognition software.
<Ki Pitt MD - Last Filed: 06/10/25 01:14>
ED Attending Note
Patient seen and examined by attending physician: Yes
I performed the substantive portion of visit, reviewed & personally made and approve the management plan that is documented in note by myself or HERMILA.: Yes
ED Attending Note:
I have seen and evaluated the patient with a [id number] encounter. I have spoken to the [HERMILA] and involved in the medical history, the physical exam, medical decision making.
Evaluation and management service: agree unless noted differently below.
Results interpretation: agree unless noted differently below.
Patient is a 64-year-old woman with history of prior kidney stones presenting to the emergency department with right-sided flank pain that radiates into her groin. Patient states that this feels similar to her prior kidney stones. No fevers or
chills. No nausea or vomiting. Patient has had this feels much better after receiving Dilaudid. On my evaluation patient is resting comfortably. Her abdomen is soft nondistended nontender. Blood work obtained prior to evaluation does show
slight leukocytosis. She does have an elevated creatinine. Urinalysis pending. CT scan per my interpretation with bilateral stones with bilateral hydronephrosis worse on the right. Patient will need admission.
Discharge Plan
Departure
Patient Disposition: Admit
Date of Disposition: 06/10/25
Time of Disposition: 03:41
Admit to: Med/Surg
Presentation/result/management discussed w/ accepting MD/DO: Hospitalist
Patient with high blood pressure during this ER visit?: Yes
Discharge Problem:
Hydronephrosis with urinary obstruction due to ureteral calculus, Acute kidney injury, Diverticulitis
Interventions
Interventions:
*General Assessment Last Done: 06/09/25 22:02
*Neglect/Abuse Screening Last Done: 06/09/25 22:02
*ED COVID-19 Vaccine History Last Done: 06/09/25 22:02
*ED Influenza Vaccine History Last Done: 06/09/25 22:02
[facility] Fall Risk Assessment Tool Last Done: 06/09/25 23:34
*Risk Screen - Suicide (C-SSRS) Last Done: 06/09/25 22:02
US-Yvugoh-Vhwaudhdzn Assessment Last Done: 06/09/25 23:34
ED-Female Genitourinary Assessment Last Done: 06/09/25 23:34
[2025-06-10 02:11] LABS: Urine Character Slightly Cloudy (Clear)
[2025-06-10] MEDS: DILAUDID 0.5 MG IV ×2 (02:15→05:18)
[2025-06-10 02:21] LABS: Urine Squamous Cell SEEN /LPF (Few)
[2025-06-10] MEDS: ZOSYN 100 IV (03:56)
--- NOTE | 2025-06-10 04:11 | HPS.HSE ---
Family Physician
-
Family Physician: Ebony Gomes
Chief Complaint
-
Flank pain
History of Present Illness
This is a 64-year-old female with past medical history significant for pulmonary embolism on anticoagulation, nephrolithiasis, right breast cancer status post lumpectomy presenting to the emergency department with right-sided flank pain radiating to
the groin.
Patient reportedly had procedure to remove stones on the left kidney earlier this year. She had been doing well up until Saturday when she started having painless hematuria. Then by Saturday she developed right-sided flank pain that radiated to her
groin. She continued to have small amounts of hematuria. She denies dysuria. She denies urgency frequency or fevers or chills. She denies any diarrhea or she did not nausea vomiting.
In the emergency department she was afebrile, blood pressure was 150/90 with a pulse rate of 61 oxygen saturation of 98%. He had a white count of 12.2 hemoglobin 13 and platelet 377, electrolytes were all normal. BUN and creatinine showed a
creatinine of 2.0 which is up from a baseline of 1.2. Glucose was normal. UA was positive for blood but negative for leukocyte esterase and nitrites. WBCs cannot be determined.
Patient had a CT abdomen and pelvis showing A 9 x 6 x 11 mm obstructing stone distal right ureter resulting in marked right-sided hydronephrosis and hydroureter at the level of the stone, there is surrounding stranding around the right kidney which
may be due to obstruction and or infection. There is a 3 mm obstructing stone remaining in the right kidney. There is a 3 mm obstructing stone in the proximal left ureter resulting in mild left hydronephrosis. Possible mild diverticulitis.
Medical History
Past Medical History
Past Medical History: Reports Other (Nephrolithiasis)
Additional Past Medical History:
Pulmonary embolism, DVT
Past Surgical History: Reports None and Other (Cyst removal from left breast)
Social History
Tobacco: Non-smoker
Alcohol: Occasional
Drug: None
Personal:
Living: With Family
Family History
Family History: CAD (Mother)
Allergies / Home Medications
Allergies reflects when Allergies were last updated in [email or web address].
Home Medications with original date entered in [email or web address]
Allergy/Medication List:
Allergies
Allergy/AdvReac Type Severity Reaction Status Date / Time
iodine Allergy Mild Shortness Verified 02/04/24 09:15
of Breath
shellfish derived Allergy Mild Shortness Verified 02/04/24 09:15
of Breath
Home Medications
apixaban 5 mg tablet (Eliquis) 2.5 mg PO BID 06/10/25
letrozole 2.5 mg tablet 2.5 mg PO HS 06/10/25
potassium citrate 15 mEq (1,620 mg) tablet,extended release 15 meq PO BID 06/10/25
Review of Systems
-
Constitutional: Reports No Symptoms
EENT: Reports No Symptoms
Respiratory: Reports No Symptoms
Cardiac: Reports No Symptoms
Abdomen/GI: Reports No Symptoms
: Reports No Symptoms
Musculoskeletal: Reports No Symptoms
Skin: Reports No Symptoms
Neurological: Reports No Symptoms
Endocrine: Reports No Symptoms
Hematologic/Lymphatic: Reports No Symptoms
Psych: Reports No Symptoms
Physical Exam
Vital Signs
Vital Signs
Temp Pulse Resp BP Pulse Ox
98.8 F 62 16 152/90 88
06/09/25 22:05 06/10/25 02:21 06/10/25 02:21 06/10/25 02:21 06/10/25 02:21
Physical Exam
General: Well Developed, Well Nourished and No Apparent Distress
HEENT: NormoCephalic, Moist mucous membranes and Atraumatic
Respiratory: Clear
Cardiac: S1/S2 and Regular Rhythm; No Murmur or Rub
GI: Soft, Non Tender, Non Distended and Normal Bowel Sounds; No Organomegaly
Rectal: Deferred by Provider
Musculoskeletal: No Clubbing, No Cyanosis and No Edema
Skin: No Rash
Neuro: Nonfocal/grossly intact
Laboratory Results
-
06/09/25 23:46
06/09/25 23:46
Laboratory Results
Total Bilirubin 0.9 mg/dl (0.2-1.3) 06/09/25 23:46
AST 28 U/L (14-36) 06/09/25 23:46
ALT 25 U/L (0-35) 06/09/25 23:46
Alkaline Phosphatase 88 U/L (38-126) 06/09/25 23:46
Data Reviewed
-
CT Scan: Report Reviewed by me
Lab Data: Labs Reviewed by me
Old Records: Reviewed
Impression/Plan
-
IMPRESSION:
64-year-old with history of PE, breast cancer on anticoagulation, nephrolithiasis presenting with right-sided flank pain and found to have bilateral nephrolithiasis most notably a 1.1 cm obstructing stone in the distal right ureter with severe
right-sided hydronephrosis and hydroureter as well as a 3 mm obstructing stone in the left proximal ureter with mild hydronephrosis. There is mild NING to creatinine of 2.0. There is also mild diverticulitis on the CT scan.
PLAN:
Nephrolithiasis -unclear if there is any urosepsis at this time but patient does have mild diverticulitis on CT scan. She is afebrile, she has a mild peripheral leukocytosis. No other evidence of sepsis
� Admit to MedSurg
� Patient will be going OR, n.p.o. for now
� Continue with IV fluids
� Urine cultures
� Started on antibiotics more for the diverticulitis
� Pain control
� Holding anticoagulation, last Eliquis was yesterday morning.
Left colitis�possibly incidental finding versus being masked by the nephrolithiasis and no prior history
� N.p.o. for now
� Will continue with IV Zosyn for now
� IV fluids
History of DVT�holding anticoagulation until after procedure
Status�full code
--- NOTE | 2025-06-10 06:10 | CON.MD ---
Consultation - Medical
-
see dictated note
pt on eliquis for PE
hx of stone- with atrophic left kidney
presents with abd pain
ct shows ? diverticulitis and small obstructing prox left ureteral stone with atrophic kidney- large obstructing stone at right uvj
cr up to 2/ little UO
reviewed with pt and
to OR as soon as possible for bilateral stents/possible stone manipulation
risks, benefits, alternatives and disabilties reviewed
Consultation
-
Date/Time Consultation Requested: 06/10/25 at 3:30am
Date/Time Consultation Performed: 06/10/25 at 5:45 am
Requesting Provider: ER
Performing Provider: Dr Barker
Reason for Consultation: bilateral stones
[2025-06-10] MEDS: LR 1000 IV (06:35)
--- NOTE | 2025-06-10 07:18 | PTCARENOTE ---
06:30 pt rec'vd ER , pt vs wnl, pain tolerable per pt, [facility] completed, pt oriented to unit.
[2025-06-10] MEDS: ZOSYN 50 IV ×3 (07:20→21:15)
--- NOTE | 2025-06-10 07:34 | W.PN.HOSP.TC ---
Today's Communication/Plan
-
cont empiric abx for now
follow urine culture
IVF
monitor renal function
Assessment / Plan
Assessment / Plan
Physical Exam
General: No acute distress, appears comfortable at this time
HEENT: NormoCephalic, Moist mucous membranes and Atraumatic
Respiratory: Clear
Cardiac: S1/S2 and Regular Rhythm; No Murmur or Rub
GI: Soft, Non Tender, Non Distended and Normal Bowel Sounds; No Organomegaly
Musculoskeletal: No Clubbing, No Cyanosis and No Edema
Skin: No Rash
Neuro: AOx3 conversant coherent
Psych: Calm
64F history PE on Eliquis prophylactic dose, breast ca lumpectomy, nephrolithiasis p/w right-sided flank pain and found to have bilateral nephrolithiasis most notably a 1.1 cm obstructing stone in the distal right ureter with severe right-sided
hydronephrosis and hydroureter as well as a 3 mm obstructing stone in the left proximal ureter with mild hydronephrosis. Associate NING creatinine 2.0. possible mild diverticulitis noted on CT scan.
PLAN:
Bilateral obstructing ureteral stones
Possible Complicated UTI
possible mild diverticulitis
NING
� MedSurg
- Afebrile
� Urology eval appreciated performed cystoscopy b/l stents placement and stone extraction 06/10
� Continue with IV fluids
� follow Urine cultures
� cont empiric zosyn for now
� Pain control
� Holding anticoagulation, last Eliquis was yesterday morning.
Hx PE
Follows Hematology Dr Gallegos outpt
on prophylactic dose Eliquis, hold for now, resume when clear as per Urology
Hx Breast Ca Lumpectomy
cont home Letrozole
DVT� SCD for now
Status�full code
Discussed with patient, patient's Cam, and son Justin
I spent a total of 45 minutes with the patient or on the floor. More than 50% of this time involved counseling and coordination of care.
Anticipated Discharge: 24 - 48 hours
Subjective/Interval History
-
Date of Service: June 10, 2025
no acute distress resting comfortably in bed. Overall reports feeling well folowing urologic procedure and stents placement. Pain significantly improved/resolved.
Objective Data
-
Labs:
Laboratory Results
06/09/25
23:46
WBC 12.2 H
Hgb 13.0
Hct 37.1
Plt Count 277
Sodium 135
Potassium 3.8
Chloride 100
Carbon Dioxide 23
BUN 24 H
Creatinine 2.0 H
Glucose 111 H
Calcium 10.6 H
Total Bilirubin 0.9
AST 28
ALT 25
Alkaline Phosphatase 88
Vital Signs:
Vital Signs
Temp Pulse Resp BP Pulse Ox
98.1 F 58 16 142/80 97
06/10/25 07:00 06/10/25 07:00 06/10/25 07:00 06/10/25 07:00 06/10/25 07:00
--- NOTE | 2025-06-10 08:50 | W.IMMPOSTOP ---
Surgical Immed Post Op Note
-
Primary Surgeon:
ingris
Assisting Surgeon:
Pre-op Diagnosis:
bilateral ureteral stones
Post-op Diagnosis:
same
Procedure Performed:
cysto/retrogrades/left ureteral stent/right ureteroscopy- laser litho and stent
Anesthesia Type:
gen
Specimen / Cultures:
stone and ucx
Estimated Blood Loss:
2cc
Complications:
none
Operative Findings:
left ureteral stent placed
right ureteroscopy/laser litho and stone extraction/stent performed
umaña placed
continue antibx- f/u ucx
trend cr level
hold eliquis today- if no sig hematuria will remove umaña and resume eliquis in am
[2025-06-10] MEDS: NSS 1000 IV ×2 (10:01→19:50)
[2025-06-10] MEDS: FEMARA 2.5 MG PO (21:15)
[2025-06-11 03:04] VITALS: BP 106/64
[2025-06-11] MEDS: ZOSYN 50 IV ×4 (03:18→21:11)
[2025-06-11] MEDS: NSS 1000 IV ×2 (05:10→16:39)
[2025-06-11 07:10] VITALS: BP 129/77
--- NOTE | 2025-06-11 07:24 | W.PN.HOSP.TC ---
Today's Communication/Plan
-
Cont abx for now
trend wbc
Maintain Pickard IVF
Monitor Renal function
Assessment / Plan
Assessment / Plan
Physical Exam
General: No acute distress, appears comfortable at this time
HEENT: NormoCephalic, Moist mucous membranes and Atraumatic
Respiratory: Clear
Cardiac: S1/S2 and Regular Rhythm; No Murmur or Rub
GI: Soft, Non Tender, Non Distended and Normal Bowel Sounds; No Organomegaly
: Pickard in place
Musculoskeletal: No Clubbing, No Cyanosis and No Edema
Skin: No Rash
Neuro: AOx3 conversant coherent
Psych: Calm
64F history PE on Eliquis prophylactic dose, breast ca lumpectomy, nephrolithiasis p/w right-sided flank pain and found to have bilateral nephrolithiasis most notably a 1.1 cm obstructing stone in the distal right ureter with severe right-sided
hydronephrosis and hydroureter as well as a 3 mm obstructing stone in the left proximal ureter with mild hydronephrosis. Associate NING creatinine 2.0. possible mild diverticulitis noted on CT scan.
PLAN:
Bilateral obstructing ureteral stones
Possible Complicated UTI
possible mild diverticulitis
Leukocytosis
NING
� MedSurg
- Afebrile
� Urology eval appreciated performed cystoscopy b/l stents placement and stone extraction 06/10
� Continue with IV fluids
- Leukocytosis trending up, monitor
� Urine culture no growth
� cont empiric zosyn for now
� Pain control
� Holding anticoagulation
Hx PE
Follows Hematology Dr Gallegos outpt
on prophylactic dose Eliquis, hold for now, resume when clear as per Urology
Hx Breast Ca Lumpectomy
cont home Letrozole
DVT� SCD for now
Status�full code
I spent a total of 45 minutes with the patient or on the floor. More than 50% of this time involved counseling and coordination of care.
Anticipated Discharge: 24 - 48 hours
Subjective/Interval History
-
Date of Service: June 11, 2025
No acute distress, appears comfortable at this time, overall reports feeling well. Denies pain
Objective Data
-
Labs:
Laboratory Results
06/11/25
06:48
WBC Pending
Hgb Pending
Hct Pending
Plt Count Pending
Sodium Pending
Potassium Pending
Chloride Pending
Carbon Dioxide Pending
BUN Pending
Creatinine Pending
Glucose Pending
Calcium Pending
Vital Signs:
Vital Signs
Temp Pulse Resp BP Pulse Ox
98.7 F 67 16 106/64 94
06/11/25 03:04 06/11/25 03:04 06/11/25 03:04 06/11/25 03:04 06/11/25 03:04
I&O
06/10/25 06/11/25 06/12/25
06:59 06:59 06:59
Intake Total 2019
Output Total 4025 / 402
Balance -2004 /
[2025-06-11 07:48] LABS: Hematocrit 31.7 % (37.0-47.0); Hemoglobin 10.8 g/dL (12.0-16.0); Mean Corp Hgb Conc. 34.1 g/dL (33.0-37.0); Mean Corpuscular Volume 96.1 fL (81.0-99.0); Platelet Count 232 10^3/uL (130-400); Red Cell Dist. Width 12.7 % (11.5-14.5)
[2025-06-11 07:57] LABS: Blood Urea Nitrogen 21 mg/dl (7-17); Calcium 8.5 mg/dl (8.4-10.2); Carbon Dioxide 21 mmol/L (22-30); Chloride 109 mmol/L (98-107); Estimated Creatinine Clearance 34 ml/min; Glucose 103 mg/dl (70-99); Magnesium 2.1 mg/dl (1.6-2.3); Potassium 4.0 mmol/L (3.5-5.1); Sodium 136 mmol/L (135-145); eGFR 33.07
--- NOTE | 2025-06-11 10:30 | CM ---
manufacturing project manager reviewed patient's chart and met with patient and patient states she lives with his spouse and child in a 2 story home, 3 steps to enter, patient is independent with adl's and ambulation, no dme, patient drives, home when stable, no
needs.
PCP: Ebony Gomes
Pharmacy: [facility] in [place]
[2025-06-11 15:05] VITALS: BP 149/79
[2025-06-11] MEDS: FEMARA 2.5 MG PO (21:11)
[2025-06-11 23:15] VITALS: BP 113/60
[2025-06-12] MEDS: NSS 1000 IV (03:05)
[2025-06-12] MEDS: ZOSYN 50 IV ×2 (03:06→09:02)
[2025-06-12 05:42] LABS: Hematocrit 29.9 % (37.0-47.0); Hemoglobin 10.1 g/dL (12.0-16.0); Mean Corp Hgb Conc. 33.8 g/dL (33.0-37.0); Mean Corpuscular Volume 97.1 fL (81.0-99.0); Platelet Count 222 10^3/uL (130-400); Red Cell Dist. Width 12.9 % (11.5-14.5)
[2025-06-12 06:02] LABS: Blood Urea Nitrogen 21 mg/dl (7-17); Calcium 8.5 mg/dl (8.4-10.2); Carbon Dioxide 22 mmol/L (22-30); Chloride 112 mmol/L (98-107); Estimated Creatinine Clearance 45 ml/min; Glucose 84 mg/dl (70-99); Magnesium 1.9 mg/dl (1.6-2.3); Potassium 4.2 mmol/L (3.5-5.1); Sodium 136 mmol/L (135-145); eGFR 45.63
[2025-06-12 07:00] VITALS: BP 152/88
--- NOTE | 2025-06-12 07:11 | W.PN.HOSP.TC ---
Today's Communication/Plan
-
If passes trial of void ok to discharge at noon
Assessment / Plan
Assessment / Plan
Physical Exam
General: No acute distress, appears comfortable at this time
HEENT: NormoCephalic, Moist mucous membranes and Atraumatic
Respiratory: Clear
Cardiac: S1/S2 and Regular Rhythm; No Murmur or Rub
GI: Soft, Non Tender, Non Distended and Normal Bowel Sounds; No Organomegaly
: Umaña in place
Musculoskeletal: No Clubbing, No Cyanosis and No Edema
Skin: No Rash
Neuro: AOx3 conversant coherent
Psych: Calm
64F history PE on Eliquis prophylactic dose, breast ca lumpectomy, nephrolithiasis p/w right-sided flank pain and found to have bilateral nephrolithiasis most notably a 1.1 cm obstructing stone in the distal right ureter with severe right-sided
hydronephrosis and hydroureter as well as a 3 mm obstructing stone in the left proximal ureter with mild hydronephrosis. Associate NING creatinine 2.0. possible mild diverticulitis noted on CT scan.
PLAN:
Bilateral obstructing ureteral stones
Possible Complicated UTI
possible mild diverticulitis
Leukocytosis
NING on CKD III resolved
� MedSurg
- Afebrile
� Urology beryl gould performed cystoscopy b/l stents placement and stone extraction 06/10, 06/12 dc umaña TOV ok to resume home Eliquis outpt follow up for stone extraction and stents removal
� Cr trended down to baseline, IVF completed
- Leukocytosis resolved likely stress reactive
� Urine culture no growth
� empiric zosyn completed, no need for further abx at this time
� Pain free
Hx PE
Follows Hematology Dr Gallegos outpt
on prophylactic dose Eliquis, ok to resume on discharge
Hx Breast Ca Lumpectomy
cont home Letrozole
Status�full code
Medically stable for discharge home with outpatient follow up recommendations
Total Time Preparing Discharge __40 minutes including examination of the patient, summary of the hospital stay, instructions for continuing care to all relevant caregivers; and preparation of discharge records, prescriptions, and referral
forms if necessary.
Anticipated Discharge: Today
Subjective/Interval History
-
Date of Service: June 12, 2025
no acute distress, appears well, ambulating without need for assist device. urine clear. Umaña since discontinued as per urology. Patient overall reports feeling well. denies pain. Eager to go home
Objective Data
-
Labs:
Laboratory Results
06/12/25
05:18
WBC 7.9
Hgb 10.1 L
Hct 29.9 L
Plt Count 222
Sodium 136
Potassium 4.2
Chloride 112 H
Carbon Dioxide 22
BUN 21 H
Creatinine 1.3 H
Glucose 84
Calcium 8.5
Vital Signs:
Vital Signs
Temp Pulse Resp BP Pulse Ox
99.1 F 59 17 113/60 96
06/11/25 23:15 06/11/25 23:15 06/11/25 23:15 06/11/25 23:15 06/11/25 23:15
I&O
06/11/25 06/12/25 06/13/25
06:59 06:59 06:59
Intake Total 2019 1300 / 1300
Output Total 4025 / 4025 3500 / 3500
Balance -2004 / -2004 -2199 / -2199
--- NOTE | 2025-06-12 09:31 | W.PN.UPDATE ---
Update Note
Progress Note Update
06/10: s/p right ureteroscopy/laser lithotripsy/stone extraction/stent insertion + left stent insertion (Dr. Barker).
3-way catheter placed post-op for hematuria given her h/o Eliquis AC.
Plan:
- D/C Pickard catheter (ordered)
- OK to resume Eliquis
- Patient should call [facility] next week to schedule outpatient surgery with Dr. Solano in ~2 weeks (left ureteral stone extraction and removal of bilateral ureteral stents)
D/w Dr. Oliva
--- NOTE | 2025-06-12 10:06 | W.DCSUMMARY ---
Discharge Summary
Discharge Data
Date of Admission: 06/10/25
Date of Discharge: 06/12/25
-
Pending Results: No
Discharge Plan
-
Patient Disposition: Home (Routine Discharge)
Discharge Diagnosis/Procedures: Bilateral Obstructing Kidney Stones status post bilateral Stents placement Right Stone Extraction
Acute on Chronic Kidney Disease Stage III
Condition: Good
Diet: Regular
Activity: As tolerated
Driving Restrictions: As prior to admission
Bathing Restrictions: None
Blood Work: Repeat CBC and BMP with primary care provider in 1 week of discharge
Others Tests: Call your urologist Mon or Tues following discharge to schedule your outpatient procedure for stents removal and left stone extraction in 2 weeks of discharge
Activity Restrictions/Additional Instructions:
Follow up with primary care provider in 1 week of discharge. Call your urologist Mon or Tues following discharge to schedule your outpatient procedure for stents removal and left stone extraction in 2 weeks of discharge.
Referrals:
Raffi Solano MD [Active, Urology]
Referral Note: You underwent right-sided ureteroscopy/laser/stone extraction and placement of BILATERAL ureteral stents with Dr. Barker.
Please call Dr. Solano's office early next week - you will be directly scheduled for outpatient surgery in ~2 weeks to remove the small left-sided stone AND both ureteral stents.
Ebony Gomes DO [Family Provider, Family Practice] - in one week
Prescriptions:
Continued
letrozole 2.5 mg Tablet
2.5 mg PO HS
potassium citrate 15 mEq Tablet Extended Release
15 meq PO BID
Rx Instructions:
Has not started yet
Eliquis 5 mg tablet
2.5 mg PO BID
Discharge Orders:
Discharge Patient (As Directed); Ordered 06/12/25
Ordered By: Tavares Oliva
Discharge Date and Time
Print Language: WELSH
--- NOTE | 2025-06-12 10:18 | CM ---
Home no needs.
Plan; D/c today no needs.
[2025-06-12 11:32] VITALS: BP 165/92
[2025-06-15 23:26] LABS: Stone Analysis Mass 23 mg
== END 2025-06-12 11:53 | disposition home or self-care (01) | DRG 660 ==
LOC: 2 SOUTH 04:38
PROVIDERS: Emergency Medicine; Radiology Diagnostic Radiology; ADMITTING PHYSICIAN Internal Medicine; ATTENDING PHYSICIAN Internal Medicine; CONSULT PHYSICIAN Specialist; EMERGENCY PHYSICIAN Student in an Organized Health Care Education/Training Program; FAMILY PHYSICIAN Family Medicine
PROC: 0TC68ZZ Extirpation of Matter from Right Ureter, Via Natural or Artificial Opening Endoscopic (ICD-10-PCS; 2025-06-11)
PROC: BT141ZZ Fluoroscopy of Kidneys, Ureters and Bladder using Low Osmolar Contrast (ICD-10-PCS; 2025-06-11)
PROC: 0T778DZ Dilation of Left Ureter with Intraluminal Device, Via Natural or Artificial Opening Endoscopic (ICD-10-PCS; 2025-06-11)
PROC: 0T768DZ Dilation of Right Ureter with Intraluminal Device, Via Natural or Artificial Opening Endoscopic (ICD-10-PCS; 2025-06-11)
DX: N13.2 Hydronephrosis with renal and ureteral calculous obstruction (principal); K57.32 Diverticulitis of large intestine without perforation or abscess without bleeding; N17.9 Acute kidney failure, unspecified; N26.1 Atrophy of kidney (terminal); N18.30 Chronic kidney disease, stage 3 unspecified; D72.829 Elevated white blood cell count, unspecified; Z86.711 Personal history of pulmonary embolism; Z86.718 Personal history of other venous thrombosis and embolism; Z79.899 Other long term (current) drug therapy
CPT/HCPCS: 74176; 74420; 76000; 80048; 80053; 81003; 81015; 82365; 83735; 84100; 85025; 85027; 87086; 99285; C1758; C2617